=== PATIENT | female | born 1950 | race Caucasian/White ===

== ENCOUNTER → 2019-12-09 11:17 | Outpatient (CLI) | payer MEDICARE, SELFPAY ==
[2019-12-09 14:19] LABS: Chloride 102 mmol/L (98-107); Potassium 4.4 mmoL/L (3.5-5.1); Sodium 137 mmol/L (136-145)
[2019-12-09 14:22] LABS: Anion Gap 11.4 mEq/L (5-15); Blood Urea Nitrogen 29 mg/dl (7-17); Carbon Dioxide 28 mmol/L (22.0-30.0); Estimated Glomerular Filt Rate 35 ml/min (>60); GFR (African American) 42 ML/MIN (>60)
[2019-12-09 14:23] LABS: Calcium 9.1 mg/dl (8.4-10.2); Glucose 182 mg/dl (74-100)
== END ==
PROVIDERS: Visit Provider Physician Assistant
DX: N28.9 Disorder of kidney and ureter, unspecified (principal)
CPT/HCPCS: 36415; 80048

== ENCOUNTER → 2019-12-16 13:29 | Outpatient (CLI) | payer MEDICARE, SELFPAY ==
--- NOTE | 2019-12-16 13:34 | US_ITS ---
PROCEDURE: US KIDNEY CLINICAL INDICATION: RENAL INSUFFICIENCY COMPARISON: No exams were available for comparison FINDINGS: The right kidney is [id number]. No hydronephrosis, cortical thinning, or renal mass or perinephric fluid collection is evident. The left kidney is [id number]. No hydronephrosis, cortical thinning, or renal mass or perinephric fluid collection is evident. IMPRESSION: Unremarkable bilateral renal ultrasound Dictated by: Andrea Peterson MD 12/16/2019 17:23 Electronically signed by Andrea Peterson MD in [place] 12/16/2019 17:23
== END ==
PROVIDERS: PCP Physician Assistant; Visit Provider Family Medicine
DX: N28.9 Disorder of kidney and ureter, unspecified (principal)
CPT/HCPCS: 76770

== ENCOUNTER 2020-09-17 02:17 | Inpatient (IN) | payer MEDICARE, SELFPAY ==
[2020-09-17] VITALS (9 sets, daily range): BP systolic 119–200; BP diastolic 66–93; PULSE 72–96; RESP 17–20; TEMP 36.4–37.1; O2SAT 95–98; BMI 42.3; BMI 40.0
--- NOTE | 2020-09-17 02:41 | CT_ITS ---
PROCEDURE: CT ABDOMEN PELVIS W CON CLINICAL INDICATION: Abd Pain Abdominal pain and bloating, history of ovarian cancer COMPARISON: No exams were available for comparison TECHNIQUE: IV Contrast: 75ML Isovue 370 Oral Contrast None Axial images obtained with sagittal and coronal reformats. All CT scans at the facility use one or more dose reduction, viz: automated exposure control, ma/kV adjustment per patient size (including targeted exams where dose is matched to indication, i.e. head), or iterative reconstruction technique. FINDINGS: LOWER THORAX: Consolidation is present in the right lung base posteriorly consistent with an area of atelectasis or infiltrate. ABDOMEN & PELVIS: Fatty liver. No focal liver lesion. There is cholelithiasis. The gallbladder is slightly distended. Small calcific density is present in the distal common bile duct measuring approximately 4 mm suggesting a common duct stone. The common bile duct is slightly prominent at 9 mm. There is an additional small calcific density at the distal aspect of the common bile duct at the ampulla measuring 2 mm. The pancreas has an unremarkable appearance as does the spleen and adrenal glands. No renal or ureteral calculi. No hydronephrosis. No evidence of appendicitis. There has been a prior hysterectomy. There is colonic diverticulosis but no evidence of diverticulitis. There is a small focal area of thickening involving the transverse colon series 3, image 61. This may only be related to the area nondistention and may be confirmed with follow-up Degenerative changes are present in the spine. IMPRESSION: 1. Cholelithiasis with choledocholithiasis. Common bile duct is slightly prominent at 9 mm. The gallbladder is somewhat distended. 2. Atelectasis or infiltrate in the right lung base. 3. Small area of thickening of the transverse colon possibly due to nondistention. Nonemergent colonoscopy/barium enema may confirm to exclude an area of neoplastic involvement Dictated by: Andrea Peterson MD 09/17/2020 05:50 Andrea Peterson MD in [place] 09/17/2020 05:50
--- NOTE | 2020-09-17 02:41 | HMH.EDNVD ---
ED Disposition Clinical Impression: Renal insufficiency, Hypothyroidism (acquired) Cholelithiasis Qualifiers: Cholelithiasis location: gallbladder and bile duct Cholecystitis presence: without cholecystitis Biliary obstruction: with biliary obstruction Qualified Code(s): K80.71 - Calculus of gallbladder and bile duct without cholecystitis with obstruction Pancreatitis, acute Qualifiers: Pancreatitis type: biliary Acute pancreatitis complication: no infection or necrosis Qualified Code(s): K85.10 - Biliary acute pancreatitis without necrosis or infection Obesity Qualifiers: Obesity type: due to excess calories Obesity classification: adult class 3 (BMI >= 40) Serious obesity comorbidity presence: with serious comorbidity Body mass index: BMI 40.0-44.9 Qualified Code(s): E66.01 - Morbid (severe) obesity due to excess calories; Z68.41 - Body mass index [BMI]40.0-44.9, adult Disposition: Admitted As Inpatient Condition on Discharge: Good Instructions: DI for Acute Abdominal Pain Referrals: Linda Lamas PA [Primary Care Provider] - - Critical Care Critical Care Time: No Attestation: On 09/17/20, the high probability of a clinically significant, sudden or life threatening deterioration of the following system(s) required my full and direct attention, intervention and personal management. The time I documented below is in addition to time spent performing reported procedures but includes the following listed in this critical care notation. Medical Decision Making - Medical Records Medical records reviewed: Yes: I reviewed the patient's medical records. - [place] Inquiry Pt receiving controlled substance: No Vital Signs: 09/17/20 02:24 09/17/20 02:27 09/17/20 02:31 Temperature 97.5 F L Temperature Source Oral Pulse Rate 77 83 78 Pulse Rate [Right] 96 H Respiratory Rate 18 Blood Pressure 200/89 H 183/93 H 182/87 H Blood Pressure [Right Arm] 200/89 H Blood Pressure Mean 128 123 118 Blood Pressure Mean [Right Arm] 126 Blood Pressure Source [Right Arm] Automatic Cuff Blood Pressure Position [Right Arm] Supine 02 Sat by Pulse Oximetry 97 98 95 Oxygen Delivery Method Room Air 09/17/20 03:44 Temperature Temperature Source Pulse Rate 78 Pulse Rate [Right] Respiratory Rate Blood Pressure 137/66 Blood Pressure [Right Arm] Blood Pressure Mean 104 Blood Pressure Mean [Right Arm] Blood Pressure Source [Right Arm] Blood Pressure Position [Right Arm] 02 Sat by Pulse Oximetry 96 Oxygen Delivery Method - Lab Data Lab results reviewed: Yes: I reviewed the patient's lab results. Lab Results 09/17/20 02:32: Urine Color Dark yellow, Urine Appearance Clear, Urine pH 5.5, Ur Specific [place] >= 1.030, Urine Protein 2+, Urine Glucose (UA) Negative, Urine Ketones Negative, Urine Blood Trace-i, Urine Nitrate Negative, Urine Bilirubin Negative, Urine Urobilinogen 0.2, Ur Leukocyte Esterase Negative, Urine WBC 3-5, Ur Squamous Epith Cells Tntc, Calcium Oxalate Crystal 1+, Urine Bacteria 1+ 09/17/20 02:32: WBC 9.8, RBC 5.31, Hgb 14.4, Hct 45.1, MCV 84.9, MCH 27.1, MCHC 31.9, RDW 13.8, Plt Count 328, MPV 8.0, Neut % (Auto) 79.5, Lymph % (Auto) 14.5, [place] % (Auto) 4.0, Eos % (Auto) 1.3, Baso % (Auto) 0.6, Neut # (Auto) 7.8, Lymph # (Auto) 1.4, [place] # (Auto) 0.4, Eos # (Auto) 0.1, Baso # (Auto) 0.1, ESR 59 H 09/17/20 02:32: Sodium 131 L, Potassium 4.0, Chloride 97 L, Carbon Dioxide 24, Anion Gap 14.0, BUN 21 H, Creatinine 1.40 H, Estimated Creat Clear 35, Estimated GFR 37 L, Est GFR ( Amer) 45 L, Glucose 136 H, Calcium 10.8 H, Total Bilirubin 2.5 H, AST 299 H, ALT 349 H*, Alkaline Phosphatase 170 H, C-Reactive Protein 8.7 H, Total Protein 8.4 H, Albumin 4.7, Globulin 3.7 H, Albumin/Globulin Ratio 1.3, Amylase 1129 H*, Lipase 16706 H, Procalcitonin 0.223 Result diagrams: 09/17/20 02:32 09/17/20 02:32 Orders (Tests/Meds): ED MEDICATIONS Generic Name Dose Route Start Last Admin Trade Name Fr
[2020-09-17 02:59] LABS: Microscopic, Urine URINE MICROSCOPIC (MICROSCOPIC)
[2020-09-17 03:04] LABS: Appearance,Urine CLEAR (Clear); Blood, Urine TRACE-I (Negative); Glucose,Urine (UA) Negative (Negative); Ketones,Urine Negative (Negative); Leukocyte Esterase,Urine Negative (Negative); Nitrate,Urine Negative (Negative); PH,Urine 5.5 (5.0-8.5); Protein,Urine 2+ (Negative); Specific Gravity, Urine >= 1.030 (1.005-1.030); Urobilinogen,Urine 0.2 EU/dl (0.2)
[2020-09-17 03:05] LABS: Alanine Aminotransferase 349 U/L (12-78); Albumin Level 4.7 g/dl (3.5-5.0); Albumin/Globulin Ratio 1.3 (1.1-1.8); Alkaline Phosphatase 170 U/L (38-126); Amylase 1129 U/L (30-110); Aspartate Amino Transferase 299 U/L (14-36); Bilirubin,Total 2.5 mg/dl (0.2-1.3); Blood Urea Nitrogen 21 mg/dl (7-17); Calcium 10.8 mg/dl (8.4-10.2); Carbon Dioxide 24 mmol/L (22.0-30.0); Chloride 97 mmol/L (98-107); Creatinine Clearance Estimated 35 mL/min (50-200); Estimated Glomerular Filt Rate 37 ml/min (>60); GFR (African American) 45 ML/MIN (>60); Globulin 3.7 g/dL (1.3-3.2); Glucose 136 mg/dl (74-100); Sodium 131 mmol/L (136-145); Total Protein,Serum 8.4 g/dl (6.3-8.2)
[2020-09-17 03:08] LABS: Bilirubin,Urine Negative (Negative); Color,Urine Dark Yellow (Yellow)
[2020-09-17 03:10] LABS: Basophils # 0.1 K/mm3 (0-0.2); Basophils % 0.6 % (0.1-2.0); Eosinophils # 0.1 K/mm3 (0.0-0.4); Eosinophils % 1.3 % (0.1-12.0); Hematocrit 45.1 % (37.0-47.0); Hemoglobin 14.4 g/dL (12.2-16.2); Lymphocytes # 1.4 K/mm3 (0.7-4.5); Lymphocytes % 14.5 % (10-50); Mean Corpuscular HGB Conc 31.9 g/dL (31.8-35.4); Mean Corpuscular Hemoglobin 27.1 pg (27.0-31.2); Mean Corpuscular Volume 84.9 fl (81-99); Monocytes # 0.4 K/mm3 (0.1-1.0); Neutrophils # 7.8 K/mm3 (1.8-7.8); Neutrophils % 79.5 % (37.0-80.0); Platelet Count 328 K/mm3 (142-424); Red Blood Count 5.31 M/mm3 (4.20-5.40); Red Cell Distribution Width 13.8 % (11.5-17.5); White Blood Count 9.8 K/mm3 (4.8-10.8)
[2020-09-17 03:11] LABS: C-Reactive Protein 8.7 mg/L (0-4)
[2020-09-17 04:24] LABS: Adenovirus,PCR Not Detected (NotDetected); Bordetella Pertussis Not Detected (NotDetected); Chlamydophila Pneumoniae, PCR Not Detected (NotDetected); Coronavirus 19, PCR Not Detected (NotDetected); Coronavirus 229E Not Detected (NotDetected); Coronavirus NL63 Not Detected (NotDetected); Coronavirus OC43 Not Detected (NotDetected); Coronovirus HKU1,PCR Not Detected (NotDetected); Human Metapneumovirus Not Detected (NotDetected); Influenza A, PCR Not Detected (NotDetected); Influenza AH1, 2009 Not Detected (NotDetected); Influenza AH1, PCR Not Detected (NotDetected); Influenza AH3,PCR Not Detected (NotDetected); Influenza B, PCR Not Detected (NotDetected); Mycoplasma Pneumoniae, PCR Not Detected (NotDetected); Parainfluenza 1, PCR Not Detected (NotDetected); Parainfluenza 2, PCR Not Detected (NotDetected); Parainfluenza 3, PCR Not Detected (NotDetected); Parainfluenza 4, PCR Not Detected (NotDetected); Respiratory Syncytial Virus Not Detected (NotDetected); Rhinovirus/Enterovirus Not Detected (NotDetected)
[2020-09-17 04:36] LABS: Bacteria,Urine 1+ /lpf; Calcium Oxalate Crystals,Urine 1+ /lpf; Squamous Epithelial Cell,Urine TNTC #/hpf (0-5)
[2020-09-17 04:53] LABS: Lipase 13598 U/L (23-300)
[2020-09-17 05:01] LABS: Erythrocyte Sedimentation Rate 59 mm/hr (0-30)
[2020-09-17 05:19] LABS: Procalcitonin 0.223 ng/mL (0.0-2.0)
--- NOTE | 2020-09-17 05:24 | PC.NURSE ---
Dr Tolbert speaking with Dr Murphy for ERCP
--- NOTE | 2020-09-17 05:25 | PC.NURSE ---
Dr Tolbert speaking with Dr Suazo for surgery
--- NOTE | 2020-09-17 05:44 | PC.NURSE ---
Dr Tolbert spoke with Dr Olivo for admit
--- NOTE | 2020-09-17 06:06 | PC.NURSE ---
patient up to floor via wheelchair.
--- NOTE | 2020-09-17 06:57 | PC.NURSE ---
PT A&OX4. TOLERATING RA WELL. HAS NOT C/O PAIN SINCE ARRIVAL TO FLOOR. UP INDEPENDENTLY IN ROOM. TOLERATING NPO DIET. VSS WILL CONTINUE TO MONITOR.
--- NOTE | 2020-09-17 07:21 | HMH.PHAVTE ---
[facility] Pharmacy VTE Monitoring - Patient Demographics Admission date: 09/17/20 Report Date: 09/17/20 Time: 07:22 Allergies/Adverse Reactions: Patient Allergies No Known Allergies Allergy (Unverified 05/30/17 14:35) Height: 1.66 m Weight: 110.79 kg Patient Problems: Current Active Problems Cholelithiasis (Acute) Pancreatitis, acute (Acute) Renal insufficiency (Acute) Hypothyroidism (acquired) (Acute) Obesity (Acute) - VTE Risk Labs: VTE Related Lab Results Hgb 14.4 g/dL (12.2-16.2) 09/17/20 02:32 Hct 45.1 % (37.0-47.0) 09/17/20 02:32 Plt Count 328 K/mm3 (142-424) 09/17/20 02:32 BUN 21 mg/dl (7-17) H 09/17/20 02:32 Creatinine 1.40 mg/dl (0.52-1.04) H 09/17/20 02:32 Estimated Creat Clear 35 mL/min (50-200) 09/17/20 02:32 - Prophylaxis VTE Prophylaxis Ordered?: Yes Types of VTE Prophylaxis: TEDS Knee High Location of Applied Device: Bilateral Lower Extremeties
--- NOTE | 2020-09-17 07:22 | PC.NURSE ---
Dr. Cardenas notified of consult.
--- NOTE | 2020-09-17 07:22 | PC.NURSE ---
Surgery notified of Madhuri consult, vipul put it on the board.
--- NOTE | 2020-09-17 07:57 | HMH.GSCON ---
*Admission Date: 09/17/20 *Reason for consult:: Gallstones, pancreatitis *History of present illness: Patient is a 70-year-old female. She states that/11/30 she had developed some upper abdominal pains which she thought was gas pain. She did have some associated bloating. This had transiently improved however last night it recurred. This was across the upper abdomen with radiation into her back. She presented to the emergency department. She was seen and evaluated and underwent work-up. This revealed elevation of liver function tests with a bilirubin of 2.5. She had elevation of pancreatic enzymes. CT scan imaging revealed findings of gallstones with dilated common bile duct with probable common bile duct stone. Surgery was contacted. It is felt that the patient may require transfer for more emergent ERCP for choledocholithiasis and biliary pancreatitis. Discussion was held with gastroenterology who felt that she could be admitted for urgent ERCP when available. She was admitted and gastroenterology and surgical consultations were obtained. Review of Systems - Review of Systems Review of systems:: pertinent systems reviewed and negative unless documented below - *Neurologic Denies localized weakness, Denies headache(s), Denies seizure-like activity [facility] History I have reviewed the patient's past medical history: Yes Medical History: Reports:: Cancer, Hypertension Denies:: Diabetes Mellitus Type 1, Diabetes Mellitus Type 2 *Have you ever received a pneumonia vaccine?: Yes *Have you received a flu vaccine this season?: No Other Medical History: Reports: Thyroid Disease Other Surgeries: Yes: Hysterectomy-Total - *Social History Smoking Status: Former smoker Alcohol Intake: never *Occupational Status:: retired *Travel in the last 8 weeks: None Family Hx:: Non-contributory Meds Home Medications Medication Instructions Recorded Confirmed Type Amlodipine Besylate [Norvasc 5mg 5 mg PO DAILY 09/17/20 History tablet] Aspirin [Aspirin 81mg EC Tab] 81 mg PO DAILY 09/17/20 History Calcium Carbonate [Calcium] 600 mg PO BID 09/17/20 History Cholecalciferol (Vitamin D3) 5,000 unit PO DAILY 09/17/20 History [Vitamin D3 1,000 Unit Cap] Docusate Sodium [Colace] 100 mg PO DAILY 09/17/20 History Levothyroxine Sodium 25 mcg PO DAILY 09/17/20 09/17/20 History [Levothyroxine 25mcg (0.025mg) Tab] Meloxicam [Mobic 15 mg tab] 15 mg PO DAILY 09/17/20 History Metoprolol Succinate [Metoprolol 50 mg PO DAILY 09/17/20 History Succinate 50mg Tablet*] Pravastatin Sodium [Pravachol] 20 mg PO HS 09/17/20 History calcium polycarbophiL [Fiber Tabs] 1,250 mg PO DAILY 09/17/20 History Allergies Allergy/AdvReac Type Severity Reaction Status Date / Time No Known Allergies Allergy Unverified 05/30/17 14:35 Exam Vital signs and Labs for Last 24 Hours: Temp Pulse Resp BP Pulse Ox 97.6 F 72 17 155/86 H 98 09/17/20 06:23 09/17/20 06:23 09/17/20 06:23 09/17/20 06:23 09/17/20 06:23 Laboratory Results - last 24 hr 09/17/20 02:32: Urine Color Dark yellow, Urine Appearance Clear, Urine pH 5.5, Ur Specific [place] >= 1.030, Urine Protein 2+, Urine Glucose (UA) Negative, Urine Ketones Negative, Urine Blood Trace-i, Urine Nitrate Negative, Urine Bilirubin Negative, Urine Urobilinogen 0.2, Ur Leukocyte Esterase Negative, Urine WBC 3-5, Ur Squamous Epith Cells Tntc, Calcium Oxalate Crystal 1+, Urine Bacteria 1+ 09/17/20 02:32: WBC 9.8, RBC 5.31, Hgb 14.4, Hct 45.1, MCV 84.9, MCH 27.1, MCHC 31.9, RDW 13.8, Plt Count 328, MPV 8.0, Neut % (Auto) 79.5, Lymph % (Auto) 14.5, [place] % (Auto) 4.0, Eos % (Auto) 1.3, Baso % (Auto) 0.6, Neut # (Auto) 7.8, Lymph # (Auto) 1.4, [place] # (Auto) 0.4, Eos # (Auto) 0.1, Baso # (Auto) 0.1, ESR 59 H 09/17/20 02:32: Sodium 131 L, Potassium 4.0, Chloride 97 L, Carbon Dioxide 24, Anion Gap 14.0, BUN 21 H, Creatinine 1.40 H, Estimated Creat Clear 35, Estimated GFR 37 L, Est GFR ( Amer)
[2020-09-17 08:29] LABS: Lactate Dehydrogenase 438 U/L (313-618)
--- NOTE | 2020-09-17 08:30 | US_ITS ---
PROCEDURE: US GALLBLADDER CLINICAL INDICATION: abd pain Abdominal pain with choledocholithiasis suspected COMPARISON: No exams were available for comparison FINDINGS: Study is technically difficult due to patient's body habitus. Pancreas: Unremarkable appearing pancreas. Liver: Diffuse increased echogenicity of the liver with poor through transmission of sound consistent with hepatic steatosis. No focal liver lesion demonstrated. There is appropriate direction of blood flow within non dilated portal vein. Right kidney: Cortical thinning. No hydronephrosis. Gallbladder: Gallbladder slightly distended. There are small stones noted. No obvious gallbladder wall thickening, pericholecystic fluid, or biliary dilatation. IMPRESSION: Limited exam secondary to patient's body habitus.. Small gallstones are noted. Fatty liver Dictated by: Andrea Peterson MD 09/17/2020 11:00 Andrea Peterson MD in [place] 09/17/2020 11:00
--- NOTE | 2020-09-17 09:53 | HMH.PHAINT ---
MEDICATION RECONCILIATION COMPLETED USING EXTERNAL FILL HISTORY AND PHYSICIAN OFFICE LIST
--- NOTE | 2020-09-17 12:34 | HMH.HP ---
*Admission Date: 09/17/20 <NarayanRobert hainesa 09/17/20 12:41> *Chief complaint: abdominal pain <Linda Lamas 09/17/20 12:41> *History of present illness: Patient is a 70-year-old female. She states that on 09/15/20 she had developed some upper abdominal pains which she thought was gas pain. She did have some associated bloating. This had transiently improved however last night it recurred. This was across the upper abdomen with radiation into her back. She presented to the emergency department. She was seen and evaluated and underwent work-up. This revealed elevation of liver function tests with a bilirubin of 2.5. She had elevation of pancreatic enzymes. CT scan imaging revealed findings of gallstones with dilated common bile duct with probable common bile duct stone. Surgery was contacted. It is felt that the patient may require transfer for more emergent ERCP for choledocholithiasis and biliary pancreatitis. Discussion was held with gastroenterology who felt that she could be admitted for urgent ERCP when available. She was admitted and gastroenterology and surgical consultations were obtained. (above as per Dr. Cardenas) <Linda Lamas 09/17/20 12:41> [facility] History I have reviewed the patient's past medical history: Yes <Linda Lamas 09/17/20 12:41> Medical History: Reports:: Cancer, Hyperlipidemia, Hypertension Denies:: Diabetes Mellitus Type 1, Diabetes Mellitus Type 2 <Linda Lamas 09/17/20 12:41> *Have you ever received a pneumonia vaccine?: Yes <Linda Lamas 09/17/20 12:41> *Have you received a flu vaccine this season?: No <Linda Lamas 09/17/20 12:41> Other Medical History: Reports: Hypothyroidism, Thyroid Disease <Linda Lamas 09/17/20 12:41> Laterality Cases: Left: Total Knee Replacement <Linda Lamas 09/17/20 12:41> Other Surgeries: Yes: Hysterectomy-Total <Linda Laams 09/17/20 12:41> - *Social History Smoking Status: Former smoker <Linda Lamas 09/17/20 12:41> Alcohol Intake: never <Linda Lamas 09/17/20 12:41> *Occupational Status:: retired <Linda Lamas 09/17/20 12:41> *Travel in the last 8 weeks: None <Linda Lamas 09/17/20 12:41> Family Hx:: Coronary Artery Disease, Heart Attack, Hypertension <Linda Lamas 09/17/20 12:41> Review of Systems - Constitutional Denies chills, Denies fever(s), Denies weakness <Linda Lamas 09/17/20 12:41> - Eyes Denies blurry vision, Denies double vision <Linda Lamas 09/17/20 12:41> - ENT Denies nasal congestion, Denies sore throat <Linda Lamas 09/17/20 12:41> - *Cardiovascular Reports shortness of breath, Denies chest pain, Denies leg swelling <Linda Lamas 09/17/20 12:41> - *Respiratory Denies cough <Linda Lamas 09/17/20 12:41> - *Gastrointestinal Reports abdominal pain (upper abdomen), Reports constipation, Reports nausea, Reports vomiting, Denies loose stools <Linda Lamas 09/17/20 12:41> - *Genitourinary Denies difficulty urinating, Denies painful urination <Linda Lamas 09/17/20 12:41> - *Musculoskeletal Reports back pain, Denies joint pain <Linda Lamas 09/17/20 12:41> - *Neurologic Denies localized weakness, Denies headache(s), Denies seizure-like activity, Denies dizziness, Denies weakness <Linda Lamas 09/17/20 12:41> Meds Home Medications Medication Instructions Recorded Confirmed Type Amlodipine Besylate [Norvasc 5mg 5 mg PO DAILY 09/17/20 09/17/20 History tablet] Aspirin [Aspirin 81mg EC Tab] 81 mg PO DAILY 09/17/20 09/17/20 History Calcium Carbonate [Calcium] 600 mg PO BID 09/17/20 09/17/20 History Cholecalciferol (Vitamin D3) 2,000 unit PO DAILY 09/17/20 09/17/20 History [Vitamin D3 1,000 Unit Cap] Docusate Sodium [Colace] 100 mg PO DAILY 09/17/20 09/17/20 History Levothyroxine Sodium 25 mcg PO DAILY 09/17/20 09/17/20 History [Levothyroxine 25mcg (0.025mg) Tab] Meloxicam [Mobic 15 mg tab] 15 mg PO DAILY 09/17/20 09/17/20 Hist
--- NOTE | 2020-09-17 16:40 | PC.NURSE ---
Report given to Hany Wolfe RN.
--- NOTE | 2020-09-17 16:44 | PC.NURSE ---
Report received from JAYLYN Posey.
--- NOTE | 2020-09-17 17:04 | PC.NURSE ---
Pt taking a shower at this time.
--- NOTE | 2020-09-17 19:26 | PC.NURSE ---
Report to JAYLYN [place].
[2020-09-18] VITALS (19 sets, daily range): BP systolic 117–170; BP diastolic 53–91; PULSE 73–89; RESP 16–18; TEMP 36.1–36.8; O2SAT 93–100; BMI 40.3
--- NOTE | 2020-09-18 04:21 | PC.NURSE ---
pt has slept in intervals this shift. A&O x4, BLT lungs CTA, Bowel sounds present in all 4 quadrants, Pt on RA, IV changed this shift r/t IV leaking. pt has been medicated for pain and nausea per MAR, Pt denies SOA, headache, or vomiting, abdomen soft, non-tender, and slightly puffy
--- NOTE | 2020-09-18 06:45 | PC.NURSE ---
Lab at the bedside
[2020-09-18 07:01] LABS: Basophils % 0.3 % (0.1-2.0); Eosinophils # 0.1 K/mm3 (0.0-0.4); Eosinophils % 1.4 % (0.1-12.0); Hematocrit 42.5 % (37.0-47.0); Hemoglobin 13.7 g/dL (12.2-16.2); Lymphocytes # 1.4 K/mm3 (0.7-4.5); Lymphocytes % 13.7 % (10-50); Mean Corpuscular HGB Conc 32.1 g/dL (31.8-35.4); Mean Corpuscular Hemoglobin 27.7 pg (27.0-31.2); Mean Corpuscular Volume 86.2 fl (81-99); Mean Platelet Volume 7.9 fl (7.4-10.4); Monocytes # 0.4 K/mm3 (0.1-1.0); Monocytes % 3.5 % (1.7-9.3); Neutrophils # 8.4 K/mm3 (1.8-7.8); Neutrophils % 81.1 % (37.0-80.0); Platelet Count 290 K/mm3 (142-424); Red Blood Count 4.93 M/mm3 (4.20-5.40); Red Cell Distribution Width 14.2 % (11.5-17.5); White Blood Count 10.3 K/mm3 (4.8-10.8)
--- NOTE | 2020-09-18 07:13 | PC.NURSE ---
Report to Lynnette Sauceda Rn and Hany Rabago RN
--- NOTE | 2020-09-18 07:19 | HMH.GSPN ---
Subjective Narrative: Patient still has had some pain. Requiring morphine. Progress Note: A&P (1) Pancreatitis, acute Status: Acute (2) Cholelithiasis Status: Acute (3) Renal insufficiency Status: Acute (4) Hypothyroidism (acquired) Status: Chronic (5) Hypertension Status: Chronic (6) Hyperlipemia Status: Chronic (7) Elevated LFTs Status: Acute Assessment and Plan for All Diagnoses:: ERCP today. Once pancreatitis resolves may be able to be discharged with outpatient cholecystectomy Exam Vital signs and Labs for Last 24 Hours: Temp Pulse Resp BP Pulse Ox 97.7 F 74 18 142/74 H 93 L 09/18/20 04:00 09/18/20 04:00 09/18/20 04:00 09/18/20 04:00 09/18/20 04:00 Laboratory Results - last 24 hr 09/17/20 02:32: Lactate Dehydrogenase 438 I & O for Last 24 hours: Intake & Output 09/15/20 09/16/20 09/17/20 09/18/20 11:59 11:59 11:59 11:59 Intake Total 2300 / 2300 480 / 480 Output Total 0 / 0 Balance 2300 / 2300 480 / 480 Weight 244 lb 4 oz - *Routine Abdominal Exam Present: soft
[2020-09-18 07:38] LABS: Chloride 103 mmol/L (98-107)
[2020-09-18 07:39] LABS: Potassium 4.7 mmoL/L (3.5-5.1); Sodium 135 mmol/L (136-145)
[2020-09-18 07:41] LABS: Amylase 202 U/L (30-110)
[2020-09-18 07:42] LABS: Alanine Aminotransferase 256 U/L (12-78); Albumin Level 4.2 g/dl (3.5-5.0); Albumin/Globulin Ratio 1.4 (1.1-1.8); Alkaline Phosphatase 141 U/L (38-126); Anion Gap 12.7 mEq/L (5-15); Aspartate Amino Transferase 133 U/L (14-36); Bilirubin,Total 0.8 mg/dl (0.2-1.3); Blood Urea Nitrogen 15 mg/dl (7-17); Carbon Dioxide 24 mmol/L (22.0-30.0); Creatinine Clearance Estimated 78 mL/min (50-200); Estimated Glomerular Filt Rate 45 ml/min (>60); GFR (African American) 54 ML/MIN (>60); Globulin 3.1 g/dL (1.3-3.2); Glucose 92 mg/dl (74-100); Lipase 409 U/L (23-300); Total Protein,Serum 7.3 g/dl (6.3-8.2)
[2020-09-18 07:43] LABS: Calcium 9.3 mg/dl (8.4-10.2)
--- NOTE | 2020-09-18 08:00 | PC.NURSE ---
Padma Lamas PA in room at this time.
--- NOTE | 2020-09-18 08:23 | PC.NURSE ---
Dr. Roblero in room.
--- NOTE | 2020-09-18 08:30 | HMH.ACPN2 ---
<Linda Lamas - Last Filed: 09/18/20 08:30> Internal Medicine - PN: Subj *Date: 09/18/20 *Time: 08:30 Interval history: Patient states she is feeling better this morning. Her pain is improved. She still has some upper abdominal bloating. She states she did take morphine last night and slept well. She was able to drink some liquids yesterday but did have some episodes of vomiting. Exam Vital signs and Labs for Last 24 Hours: Temp Pulse Resp BP Pulse Ox 97.7 F 74 18 142/74 H 93 L 09/18/20 04:00 09/18/20 04:00 09/18/20 04:00 09/18/20 04:00 09/18/20 04:00 Laboratory Results - last 24 hr 09/17/20 02:32: Lactate Dehydrogenase 438 09/18/20 06:47: WBC 10.3, RBC 4.93, Hgb 13.7, Hct 42.5, MCV 86.2, MCH 27.7, MCHC 32.1, RDW 14.2, Plt Count 290, MPV 7.9, Neut % (Auto) 81.1 H, Lymph % (Auto) 13.7, [place] % (Auto) 3.5, Eos % (Auto) 1.4, Baso % (Auto) 0.3, Neut # (Auto) 8.4 H, Lymph # (Auto) 1.4, [place] # (Auto) 0.4, Eos # (Auto) 0.1, Baso # (Auto) 0.0 09/18/20 06:47: Sodium 135 L, Potassium 4.7, Chloride 103, Carbon Dioxide 24, Anion Gap 12.7, BUN 15 D, Creatinine 1.20 H, Estimated Creat Clear 78, Estimated GFR 45 L, Est GFR ( Amer) 54 L, Glucose 92, Calcium 9.3 D, Total Bilirubin 0.8, AST 133 H D, ALT 256 H D, Alkaline Phosphatase 141 H, Total Protein 7.3, Albumin 4.2 D, Globulin 3.1, Albumin/Globulin Ratio 1.4, Amylase 202 H, Lipase 409 H I & O for Last 24 hours: Intake & Output 09/15/20 09/16/20 09/17/20 09/18/20 11:59 11:59 11:59 11:59 Intake Total 2300 / 2300 480 / 480 Output Total 0 / 0 Balance 2300 / 2300 480 / 480 Weight 244 lb 4 oz - Constitutional no acute distress - *Routine Respiratory Exam Present: CTA bilaterally - *Routine Cardiovascular Exam Present: RRR - *Routine Abdominal Exam Present: soft, normoactive bowel sounds, tenderness (Epigastric), distended (Epigastric area) - *Routine Extremities Exam Absent: cyanosis, clubbing, edema - *Routine Skin Exam Present: warm. Absent: rash - *Routine Neurological Exam Present: alert, oriented X3 Assessment and Plan (1) Pancreatitis, acute Status: Acute Qualifiers: Pancreatitis type: biliary Acute pancreatitis complication: no infection or necrosis Qualified Code(s): K85.10 - Biliary acute pancreatitis without necrosis or infection Category: Medical Code(s): K85.90 - Acute pancreatitis without necrosis or infection, unspecified (2) Cholelithiasis Status: Acute Qualifiers: Cholelithiasis location: gallbladder and bile duct Cholecystitis presence: without cholecystitis Biliary obstruction: with biliary obstruction Qualified Code(s): K80.71 - Calculus of gallbladder and bile duct without cholecystitis with obstruction Category: Medical Code(s): K80.20 - Calculus of gallbladder without cholecystitis without obstruction (3) Renal insufficiency Status: Acute Category: Medical Code(s): N28.9 - Disorder of kidney and ureter, unspecified (4) Hypothyroidism (acquired) Status: Chronic Category: Medical Code(s): E03.9 - Hypothyroidism, unspecified (5) Hypertension Status: Chronic Category: Medical Code(s): I10 - Essential (primary) hypertension (6) Hyperlipemia Status: Chronic Category: Medical Code(s): E78.5 - Hyperlipidemia, unspecified (7) Elevated LFTs Status: Acute Category: Medical Code(s): R79.89 - Other specified abnormal findings of blood chemistry - Assessment and plan all Dx Assessment and Plan for all problems:: Bilirubin has normalized and pancreatic enzymes have decreased significantly. The liver tests have improved as well. Patient is scheduled for an ERCP with Dr. Dhaliwal this morning. <Hesham Roblero - Last Filed: 09/18/20 09:39> Internal Medicine - PN: Subj *Date: 09/18/20 *Time: 09:38 Exam Vital signs and Labs for Last 24 Hours: Temp Pulse Resp BP Pulse Ox 98.0 F 89 16 151/77 H 97 09/18/20 08:0
--- NOTE | 2020-09-18 08:54 | HMH.PHAINT ---
verified home medication list using list from [facility]
--- NOTE | 2020-09-18 13:35 | PC.NURSE ---
Pt. to pre-op via stretcher, report given to JAYLYN Sheridan.
--- NOTE | 2020-09-18 14:02 | FL_ITS ---
PROCEDURE: FL ERCP CLINICAL INDICATION: pancreatitis Choledocholithiasis COMPARISON: CT CT ABDOMEN PELVIS W CON from 09/17/2020 FINDINGS: Fluoroscopy time: 1 minutes and 30 seconds. 3 images submitted from the procedure demonstrating a small rounded filling defect in the distal aspect the common bile duct consistent with a common duct stone. This is approximately 4 mm. There may be an additional small stone in the upper aspect of the common bile duct at 3 mm. This however is less certain. Common bile duct is slightly prominent less than the with of the endoscope. Please see op report regarding the procedure. IMPRESSION: Choledocholithiasis Dictated by: Andrea Peterson MD 09/18/2020 15:17 Andrea Peterson MD in [place] 09/18/2020 15:17
--- NOTE | 2020-09-18 14:17 | HMH.PROC ---
[facility] Procedure Note Procedure Note:: ERCP procedure Report: Endoscopic retrograde cholangiopancreatography with sphincterotomy, balloon extraction and cold biopsies Endoscopist: Adama Dhaliwal II, MD Referring Physician: ROSIBEL Evans/Cordell Cardenas MD/Garcia Roblero MD Date of Procedure: September 18, 2020 Equipment: Olympus 180 side viewing endoscope duodenoscope Sedation: MAC sedation Indication: Mrs. Jack is a 70-year-old female who has had upper abdominal pain which she thought was gas pain and bloating. On Monday of this week, the pain did radiate into the back on the right side with right subscapular pain. This became more excruciating and she came to the emergency department. Her lab work showed pancreatitis with an amylase of 1129 and lipase 13,598. She also had elevated liver chemistries with a total bilirubin of 2.5 and alkaline phosphatase 170. Her ALT level was 349. She also had an elevated C-reactive protein of 8.7. Her CT scan of the abdomen and pelvis did show small calcific densities present in the distal common bile duct measuring 4 mm with a dilated common bile duct of 9 mm. There was evidence of cholelithiasis and choledocholithiasis with a distended gallbladder. The pancreas had a fairly unremarkable appearance. The patient's daughter has celiac disease. Procedure: Prior to the procedure, a history and physical exam was performed, and patient's medications and allergies were reviewed. The risks, benefits and alternatives of the sedation and procedure were discussed with the patient. All questions were answered and informed consent was obtained. The patient was brought to the fluoroscopic radiology room. Patient identification and proposed procedure were verified by the physician and the nurse. The patient was placed in a swimmer's position between left lateral decubitus and prone position and the scope was passed under direct vision. Throughout the procedure, the patient's blood pressure, pulse, and oxygen saturations were monitored continuously. The ERCP was accomplished without difficulty. The patient tolerated the procedure well. Findings: The side-viewing duodenoscope was passed directly into the upper esophagus and advanced to the second and third portion of the duodenum. The esophagus was normal. There was mild reactive gastropathy of the stomach. The duodenum was normal and the conniventes showed no evidence of scalloping. Cold biopsies were taken from the first and second portion of the duodenum to rule out celiac disease. The ampulla was well visualized. Both the pancreatic duct and the common bile duct were freely cannulated with the guidewire. The guidewire did reach the head, body and tail of the gland but contrast was not injected into the pancreas. The cholangiogram did show a 10 to 11 mm common bile duct with normal filling of the intrahepatic biliary system. There was frothy filling defect noted in the distal CBD suggestive of stones or sludge. A biliary sphincterotomy was performed and there was extravasation of sludge and bile. A 9 to 10 mm sweeping balloon was placed at the hilum and swept through the biliary system twice with the passage of some sludge but no solid stone. There was nonfilling of the cystic duct and gallbladder suggestive of cholecystitis. Impression: 1. Biliary sludge/stony debris (minor choledocholithiasis) status post biliary sphincterotomy and balloon extraction 2. Nonfilling cystic duct/gallbladder suggestive of cholecystitis Plan: The patient did have gallstone pancreatitis. She can now undergo cholecystectomy now or elective outpatient. Given the cholangiographic and imaging evidence of early cholecystitis, I would consider earlier cholecystectomy. I will follow-up the biopsies.
--- NOTE | 2020-09-18 15:02 | P.PN_ITS ---
[facility] Anesthesia Checklist - Structural Data Admitted From: Inpatient Planned Operative Procedure/s: ercp Consent for Planned Operative Procedure(s) Verified: Yes - Airway Assessment C-Spine Mobility Assessed: Yes TMJ Mobility Assessed: Yes Dentition: Good Dentition - Neurological Assessment Level of Consciousness: Awake, Alert, Appropriate - Anesthesia Plan Anesthesia Risk discussed: Yes Anesthesia Plan: Verified ASA Class: III Anesthesia Type: MAC [facility] History I have reviewed the patient's past medical history: Yes Medical History: Reports:: Cancer, Hyperlipidemia, Hypertension Denies:: Diabetes Mellitus Type 1, Diabetes Mellitus Type 2 *Have you ever received a pneumonia vaccine?: Yes *Have you received a flu vaccine this season?: No Other Medical History: Reports: Hypothyroidism, Thyroid Disease Anesthesia experience/problems:: none Laterality Cases: Left: Total Knee Replacement Other Surgeries: Yes: Hysterectomy-Total - *Social History Smoking Status: Former smoker Alcohol Intake: never Substance Use Type: denies use *Occupational Status:: retired *Travel in the last 8 weeks: None Family Hx:: Coronary Artery Disease, Heart Attack, Hypertension
--- NOTE | 2020-09-18 15:20 | PC.NURSE ---
Report received from Candice Mcmillan RN.
--- NOTE | 2020-09-18 15:30 | PC.NURSE ---
Pt. arrived to room 279 via stretcher. accompanied by surgery staff x2.
--- NOTE | 2020-09-18 15:35 | SUR.PHASEII ---
153- report called to Lynnette Sauceda Rn- Given inst per Dr Dhaliwal for pt to only have ice chips and water today, can advance to lowfat diet in the morning 09/19/20
--- NOTE | 2020-09-18 16:20 | PC.NURSE ---
Report received from Candice Mcmillan RN.
--- NOTE | 2020-09-18 16:25 | PC.NURSE ---
Routine reassessment completed. Pt. reports feeling groggy from anesthesia and bloating in upper abd. Pt. denies pain or nausea. No further acute changes from previous assessment. Pt. resting in bed, denies needs, will continue to monitor.
--- NOTE | 2020-09-18 17:00 | PC.NURSE ---
Dr. Roblero in room at this time.
--- NOTE | 2020-09-18 19:00 | PC.NURSE ---
report received from lawson joe rn
--- NOTE | 2020-09-18 21:00 | PC.NURSE ---
BP TAKEN AT 2029 WAS 164/77. PT HAD JUST AMBULATED TO THE BATHROOM. FOLLOW UP BP TAKEN AT 2099 WAS 141/73 AT REST.
[2020-09-19] VITALS: BP 152/78; PULSE 83; RESP 17; TEMP 36.5; O2SAT 97
[2020-09-19 04:00] VITALS: BP 156/75; PULSE 95; RESP 17; TEMP 36.4; O2SAT 95
--- NOTE | 2020-09-19 04:00 | PC.NURSE ---
PATIENT HAS DONE WELL THIS SHIFT. PT HAS DENIED PAIN OR NEED FOR MEDICATION. PATIENT REMAINS A&O X4, AMBULATES WELL INDEPENDENTLY AND HAS RESTED WELL. LUNGS REMAIN CTAB AND BOWELS REMAIN HYPOACTIVE IN AL QUADRANTS. SHE IS NPO AT MIDNIGHT DUE TO UNCERTAINTY OF POSSIBLE PROCEDURE TODAY. SHE HAS RECEIVED ORDERED ANTIBIOTICS. DR. TURNER WAS NOTIFIED LAST NIGHT OF BLOOD PRESSURES TRENDING HIGHER AND A SINGLE DOSE OF AMLODIPINE WAS ORDERED AND GIVEN. HER VS HAVE BEEN STABLE AND SHE REMAINS AFEBRILE. PT HAS CALL LIGHT AND BELONGINGS IN REACH.
[2020-09-19 04:31] VITALS: BMI 43.2
[2020-09-19 05:45] LABS: Basophils % 0.3 % (0.1-2.0); Eosinophils # 0.2 K/mm3 (0.0-0.4); Eosinophils % 2.1 % (0.1-12.0); Hematocrit 41.7 % (37.0-47.0); Hemoglobin 13.3 g/dL (12.2-16.2); Lymphocytes # 0.8 K/mm3 (0.7-4.5); Mean Corpuscular HGB Conc 31.8 g/dL (31.8-35.4); Mean Corpuscular Hemoglobin 27.4 pg (27.0-31.2); Mean Corpuscular Volume 86.1 fl (81-99); Mean Platelet Volume 7.9 fl (7.4-10.4); Monocytes # 0.4 K/mm3 (0.1-1.0); Monocytes % 4.4 % (1.7-9.3); Neutrophils # 6.9 K/mm3 (1.8-7.8); Neutrophils % 83.1 % (37.0-80.0); Platelet Count 219 K/mm3 (142-424); Red Blood Count 4.84 M/mm3 (4.20-5.40); Red Cell Distribution Width 14.3 % (11.5-17.5); White Blood Count 8.3 K/mm3 (4.8-10.8)
[2020-09-19 05:53] LABS: Chloride 105 mmol/L (98-107); Sodium 136 mmol/L (136-145)
[2020-09-19 05:54] LABS: Potassium 4.1 mmoL/L (3.5-5.1)
[2020-09-19 05:56] LABS: Alanine Aminotransferase 194 U/L (12-78); Albumin/Globulin Ratio 1.1 (1.1-1.8); Alkaline Phosphatase 153 U/L (38-126); Anion Gap 12.1 mEq/L (5-15); Aspartate Amino Transferase 96 U/L (14-36); Bilirubin,Total 0.7 mg/dl (0.2-1.3); Blood Urea Nitrogen 13 mg/dl (7-17); Calcium 8.8 mg/dl (8.4-10.2); Carbon Dioxide 23 mmol/L (22.0-30.0); Creatinine Clearance Estimated 44 mL/min (50-200); Estimated Glomerular Filt Rate 49 ml/min (>60); GFR (African American) 60 ML/MIN (>60); Globulin 3.5 g/dL (1.3-3.2); Glucose 92 mg/dl (74-100); Lipase 442 U/L (23-300); Total Protein,Serum 7.5 g/dl (6.3-8.2)
--- NOTE | 2020-09-19 07:10 | PC.NURSE ---
REPORT GIVEN TO Hany CASTRO RN
[2020-09-19 08:16] VITALS: BP 145/76; PULSE 90; RESP 18; TEMP 36.5; O2SAT 99
--- NOTE | 2020-09-19 08:53 | HMH.GSPN ---
Subjective Narrative: Patient feels relatively well. She has taken some clear liquids since her ERCP. Bowels moving. Progress Note: A&P (1) Pancreatitis, acute Status: Acute (2) Cholelithiasis Status: Acute (3) Renal insufficiency Status: Acute (4) Hypothyroidism (acquired) Status: Chronic (5) Hypertension Status: Chronic (6) Hyperlipemia Status: Chronic (7) Elevated LFTs Status: Acute Assessment and Plan for All Diagnoses:: I will advance her to a low-fat diet. If clinically doing well with tolerating a diet may be able to discharge soon with outpatient follow-up for cholecystectomy. Exam Vital signs and Labs for Last 24 Hours: Temp Pulse Resp BP Pulse Ox 97.7 F 90 18 145/76 H 99 09/19/20 08:16 09/19/20 08:16 09/19/20 08:16 09/19/20 08:16 09/19/20 08:16 Laboratory Results - last 24 hr 09/19/20 02:25: WBC 8.3, RBC 4.84, Hgb 13.3, Hct 41.7, MCV 86.1, MCH 27.4, MCHC 31.8, RDW 14.3, Plt Count 219, MPV 7.9, Neut % (Auto) 83.1 H, Lymph % (Auto) 10.0, [place] % (Auto) 4.4, Eos % (Auto) 2.1, Baso % (Auto) 0.3, Neut # (Auto) 6.9, Lymph # (Auto) 0.8, [place] # (Auto) 0.4, Eos # (Auto) 0.2, Baso # (Auto) 0.0 09/19/20 02:25: Sodium 136, Potassium 4.1, Chloride 105, Carbon Dioxide 23, Anion Gap 12.1, BUN 13, Creatinine 1.10 H, Estimated Creat Clear 44, Estimated GFR 49 L, Est GFR ( Amer) 60, Glucose 92, Calcium 8.8, Total Bilirubin 0.7, AST 96 H D, ALT 194 H, Alkaline Phosphatase 153 H, Total Protein 7.5, Albumin 4.0, Globulin 3.5 H, Albumin/Globulin Ratio 1.1, Lipase 442 H I & O for Last 24 hours: Intake & Output 09/16/20 09/17/20 09/18/20 09/19/20 11:59 11:59 11:59 11:59 Intake Total 2300 / 2300 480 / 480 240 / 240 Output Total 0 / 0 Balance 2300 / 2300 480 / 480 240 / 240 Weight 244 lb 4 oz 262 lb 8 oz - *Routine Abdominal Exam Present: soft
--- NOTE | 2020-09-19 08:53 | HMH.ACPN2 ---
Internal Medicine - PN: Subj *Date: 09/19/20 *Time: 08:53 Interval history: She has done well following her ERCP yesterday. She required no pain medication or nausea medication during the night. Her bowels move last night. She is awaiting decision about surgery with Dr. Cardenas. Exam Vital signs and Labs for Last 24 Hours: Temp Pulse Resp BP Pulse Ox 97.7 F 90 18 145/76 H 99 09/19/20 08:16 09/19/20 08:16 09/19/20 08:16 09/19/20 08:16 09/19/20 08:16 Laboratory Results - last 24 hr 09/19/20 02:25: WBC 8.3, RBC 4.84, Hgb 13.3, Hct 41.7, MCV 86.1, MCH 27.4, MCHC 31.8, RDW 14.3, Plt Count 219, MPV 7.9, Neut % (Auto) 83.1 H, Lymph % (Auto) 10.0, [place] % (Auto) 4.4, Eos % (Auto) 2.1, Baso % (Auto) 0.3, Neut # (Auto) 6.9, Lymph # (Auto) 0.8, [place] # (Auto) 0.4, Eos # (Auto) 0.2, Baso # (Auto) 0.0 09/19/20 02:25: Sodium 136, Potassium 4.1, Chloride 105, Carbon Dioxide 23, Anion Gap 12.1, BUN 13, Creatinine 1.10 H, Estimated Creat Clear 44, Estimated GFR 49 L, Est GFR ( Amer) 60, Glucose 92, Calcium 8.8, Total Bilirubin 0.7, AST 96 H D, ALT 194 H, Alkaline Phosphatase 153 H, Total Protein 7.5, Albumin 4.0, Globulin 3.5 H, Albumin/Globulin Ratio 1.1, Lipase 442 H I & O for Last 24 hours: Intake & Output 09/16/20 09/17/20 09/18/20 09/19/20 11:59 11:59 11:59 11:59 Intake Total 2300 / 2300 480 / 480 240 / 240 Output Total 0 / 0 Balance 2300 / 2300 480 / 480 240 / 240 Weight 244 lb 4 oz 262 lb 8 oz Narrative: She is sitting up in the chair and is alert and oriented. Appears in no distress. Color is normal. Lungs are clear to auscultation. Heart is distant but regular with no ectopy. Abdomen is obese, soft, nondistended with no tenderness. Extremities show trace pretibial edema. Assessment and Plan (1) Pancreatitis, acute Status: Acute Qualifiers: Qualified Code(s): K85.10 - Biliary acute pancreatitis without necrosis or infection Category: Medical Code(s): K85.90 - Acute pancreatitis without necrosis or infection, unspecified (2) Cholelithiasis Status: Acute Qualifiers: Qualified Code(s): K80.71 - Calculus of gallbladder and bile duct without cholecystitis with obstruction Category: Medical Code(s): K80.20 - Calculus of gallbladder without cholecystitis without obstruction (3) Renal insufficiency Status: Acute Category: Medical Code(s): N28.9 - Disorder of kidney and ureter, unspecified (4) Hypothyroidism (acquired) Status: Chronic Category: Medical Code(s): E03.9 - Hypothyroidism, unspecified (5) Hypertension Status: Chronic Category: Medical Code(s): I10 - Essential (primary) hypertension (6) Hyperlipemia Status: Chronic Category: Medical Code(s): E78.5 - Hyperlipidemia, unspecified (7) Elevated LFTs Status: Acute Category: Medical Code(s): R79.89 - Other specified abnormal findings of blood chemistry - Assessment and plan all Dx Assessment and Plan for all problems:: She is clinically improved after her ERCP. Her liver enzymes continue to improve. Her lipase bumped up slightly from yesterday. Awaiting surgical plans per Dr. Cardenas.
--- NOTE | 2020-09-19 10:25 | PC.NURSE ---
1013 Discharge education provided to pt, questions encouraged and answered. Pt gathering belongings for discharge and getting dressed, reports that she does not need any assistance as family member is at bedside. Will call out when she is ready ot be escorted to private vehicle.
--- NOTE | 2020-09-22 14:17 | HMH.DCSUM ---
General - General Admission date:: 09/17/20 <Hesham Roblero - 10/05/20 22:16> 09/17/20 <Linda Lamas - 09/22/20 14:24> Discharge date: 09/19/20 <Linda Lamas - 09/22/20 14:24> HPI HPI: Patient is a 70-year-old female. She states that on 09/15/20 she had developed some upper abdominal pains which she thought was gas pain. She did have some associated bloating. This had transiently improved however last night it recurred. This was across the upper abdomen with radiation into her back. She presented to the emergency department. She was seen and evaluated and underwent work-up. This revealed elevation of liver function tests with a bilirubin of 2.5. She had elevation of pancreatic enzymes. CT scan imaging revealed findings of gallstones with dilated common bile duct with probable common bile duct stone. Surgery was contacted. It is felt that the patient may require transfer for more emergent ERCP for choledocholithiasis and biliary pancreatitis. Discussion was held with gastroenterology who felt that she could be admitted for urgent ERCP when available. She was admitted and gastroenterology and surgical consultations were obtained. (above as per Dr. Cardenas) <Linda Lamas - 09/22/20 14:24> Hospital Course Hospital Course: Patient was admitted and surgery and GI were consulted. Dr. Cardenas saw the patient and planned for cholecystectomy on outpatient basis once her pancreatitis resolved. Dr. Dhaliwal was scheduled to see the patient for an ERCP. She was started on pain medication and IV fluids. She was able to drink some liquids with minimal vomiting and nausea. Her pain did improve. Her bilirubin normalized and her pancreatic enzymes decreased significantly. Her liver tests improved as well. She was seen by Dr. Dhaliwal on 09/18/2020 and he performed an ERCP with sphincterotomy, balloon extraction, and cold biopsies. He did feel the patient had gallstone pancreatitis and could undergo cholecystectomy as an elective outpatient procedure or while in the hospital. The cholangiographic imaging showed evidence of early cholecystitis therefore he recommended considering earlier cholecystectomy. Dr. Cardenas felt she could advance to a low-fat diet and would be able to be discharged with outpatient follow-up for cholecystectomy. She was stable to be discharged home and will follow up with both Dr. Annika Cardenas. <Linda Lamas - 09/22/20 14:24> Objective Vital signs: Temp Pulse Resp BP Pulse Ox 97.7 F 90 18 145/76 H 99 09/19/20 08:16 09/19/20 08:16 09/19/20 08:16 09/19/20 08:16 09/19/20 08:16 <Hesham Roblero - 10/05/20 22:16> Temp Pulse Resp BP Pulse Ox 97.7 F 90 18 145/76 H 99 09/19/20 08:16 09/19/20 08:16 09/19/20 08:16 09/19/20 08:16 09/19/20 08:16 <Linda Lamas - 09/22/20 14:24> Narrative: She is sitting up in the chair and is alert and oriented. Appears in no distress. Color is normal. Lungs are clear to auscultation. Heart is distant but regular with no ectopy. Abdomen is obese, soft, nondistended with no tenderness. Extremities show trace pretibial edema. <CydneyLinda - 09/22/20 14:24> DS: Diagnosis - Discharge Diagnosis (1) Pancreatitis, acute Status: Acute (2) Cholelithiasis Status: Acute (3) Renal insufficiency Status: Acute (4) Hypothyroidism (acquired) Status: Chronic (5) Hypertension Status: Chronic (6) Hyperlipemia Status: Chronic (7) Elevated LFTs Status: Acute <CydneyLinda - 09/22/20 14:17> (1) Pancreatitis, acute Status: Acute (2) Cholelithiasis Status: Acute (3) Renal insufficiency Status: Acute (4) Hypothyroidism (acquired) Status: Chronic (5) Hypertension Status: Chronic (6) Hyperlipemia Status: Chronic (7) Elevated LFTs Status: Acute <Hesham Roblero - 10/05/20 22:16> Discharge Plan - Patient Discharge Instru
== END 2020-09-19 10:35 | disposition home or self-care (01) | DRG 444 ==
LOC: ER 02:27 → 2ND 05:36 → OB 16:35
PROVIDERS: Internal Medicine Gastroenterology; Surgery; Admitting Provider Family Medicine; Emergency Provider Emergency Medicine; PCP Physician Assistant; Visit Provider Family Medicine
DX: K80.71 Calculus of gallbladder and bile duct without cholecystitis with obstruction (principal); K85.10 Biliary acute pancreatitis without necrosis or infection; Z68.41 Body mass index [BMI] 40.0-44.9, adult; E03.9 Hypothyroidism, unspecified; E66.01 Morbid (severe) obesity due to excess calories; Z87.891 Personal history of nicotine dependence; I10 Essential (primary) hypertension; E78.5 Hyperlipidemia, unspecified; R74.8 Abnormal levels of other serum enzymes
CPT/HCPCS: 43264; 43262; 36415; 74177; 74330; 76705; 80053; 81001; 82150; 83615; 83690; 84145; 85025; 85651; 86140; 87581; 87633; 87798; 88305; 96365; 96366; 96367; 96375; 99284; J1956; J2405; Q9967

== ENCOUNTER → 2020-10-04 08:52 | Outpatient (CLI) | payer MEDICARE, SELFPAY ==
[2020-10-04 10:05] LABS: Basophils # 0.1 K/mm3 (0-0.2); Basophils % 0.9 % (0.1-2.0); Eosinophils # 0.4 K/mm3 (0.0-0.4); Eosinophils % 4.6 % (0.1-12.0); Hematocrit 42.8 % (37.0-47.0); Hemoglobin 13.7 g/dL (12.2-16.2); Lymphocytes # 1.7 K/mm3 (0.7-4.5); Lymphocytes % 21.4 % (10-50); Mean Corpuscular HGB Conc 31.9 g/dL (31.8-35.4); Mean Corpuscular Hemoglobin 27.3 pg (27.0-31.2); Mean Corpuscular Volume 85.5 fl (81-99); Monocytes # 0.4 K/mm3 (0.1-1.0); Neutrophils # 5.5 K/mm3 (1.8-7.8); Neutrophils % 68.1 % (37.0-80.0); Platelet Count 393 K/mm3 (142-424)
[2020-10-04 11:28] LABS: Alanine Aminotransferase 38 U/L (12-78); Albumin Level 4.3 g/dl (3.5-5.0); Albumin/Globulin Ratio 1.4 (1.1-1.8); Alkaline Phosphatase 110 U/L (38-126); Amylase 66 U/L (30-110); Anion Gap 16.1 mEq/L (5-15); Aspartate Amino Transferase 37 U/L (14-36); Bilirubin,Total 0.4 mg/dl (0.2-1.3); Blood Urea Nitrogen 33 mg/dl (7-17); Calcium 10.4 mg/dl (8.4-10.2); Carbon Dioxide 23 mmol/L (22.0-30.0); Chloride 101 mmol/L (98-107); Estimated Glomerular Filt Rate 32 ml/min (>60); GFR (African American) 39 ML/MIN (>60); Globulin 3.1 g/dL (1.3-3.2); Glucose 104 mg/dl (74-100); Lipase 165 U/L (23-300); Potassium 5.1 mmoL/L (3.5-5.1); Sodium 135 mmol/L (136-145); Total Protein,Serum 7.4 g/dl (6.3-8.2)
[2020-10-04 11:42] LABS: Coronavirus 19 IgG Antibody Negative (Negative); Coronavirus 19 IgM Antibody Negative (Negative)
== END ==
PROVIDERS: PCP Physician Assistant; Visit Provider Surgery
DX: Z01.812 Encounter for preprocedural laboratory examination (principal); Z20.822 Contact with and (suspected) exposure to COVID-19; K80.20 Calculus of gallbladder without cholecystitis without obstruction
CPT/HCPCS: 80053; 82150; 83690; 85025; 86328

== ENCOUNTER 2020-10-06 06:06 | Day surgery (SDC) | payer MEDICARE, SELFPAY ==
[2020-10-05 10:53] VITALS: BMI 41.5
[2020-10-06] VITALS (11 sets, daily range): BP systolic 106–162; BP diastolic 36–89; PULSE 76–94; RESP 12–18; TEMP 36.2–42.7; O2SAT 94–98
--- NOTE | 2020-10-06 08:31 | HMH.OPNOTE ---
Date of procedure: 10/06/20 Pre-op Diagnosis:: Recent biliary pancreatitis Post-op Diagnosis:: Same Procedure performed:: Laparoscopic cholecystectomy Surgeon:: Cordell Cardenas MD WASH TUB MACHINE OPERATOR:: Hitesh Fox Anesthesia: GETA Estimated blood loss (mL): 20 Clinical Note:: Patient is a 70-year-old female. She was recently admitted with acute pancreatitis which was deemed to be biliary in nature based on imaging and laboratory studies. She did undergo gastroenterology consultation as an inpatient and underwent ERCP. She convalesced well and was discharged home for outpatient cholecystectomy. Operative findings:: She had a somewhat thickened gallbladder. She had fatty infiltration of the liver. There were relatively extensive intra-abdominal adhesions from previous large midline laparotomy. Operative note:: Patient was taken the operating room. She was given preoperative intravenous antibiotics. In the operating room she was placed in a supine position. General anesthesia was induced. Abdomen was prepped and draped in the standard surgical fashion. Due to the extensive large midline laparotomy 5 mm trocar was inserted in the left subcostal region under laparoscopic visualization. CO2 pneumoperitoneum was achieved to 15 mmHg. Laparoscopic surveillance was carried out and she did have relatively extensive intra-abdominal adhesions mostly of omentum adherent anteriorly. 5 mm trocar was inserted in the left lateral abdomen. Using Metzenbaum dissection adhesions were taken down to allow for traditional trocar placement. 11 mm trocar was inserted inferior to the umbilicus and her previous laparoscopy scar. She was positioned in reverse Trendelenburg. A couple of 5 mm trochars were inserted in the right upper abdomen. 11 mm trocar was inserted in the epigastrium. Gallbladder showed signs of fatty infiltration consistent with steatohepatitis. Liver was elevated and the gallbladder was grasped retracted anteriorly and superiorly over the dome of the liver. Infundibulum of the gallbladder is retracted anterior laterally. Blunt dissection was carried out at the neck of the gallbladder bluntly incising the visceral peritoneum. Dissection was carried out identifying and isolating the cystic duct and cystic artery. Cystic duct was isolated, multiply clipped, and divided. Cystic duct was somewhat generous. Cystic artery was carefully coagulated with MICKIE ultrasonic harmonic lazarus and divided. Gallbladder was dissected free from the liver in a retrograde fashion using MICKIE ultrasonic harmonic lazarus. Gallbladder was placed within an Endo Catch retrieval device and removed from the peritoneal cavity via the umbilical trocar site. Gallbladder fossa was inspected for hemostasis which was assured. Limited irrigation was performed. Fascia at the umbilicus was closed with the laparoscopic Endo Close device. Local anesthetic was infiltrated. All trocar incisions were closed with 4-0 Monocryl in a subcuticular fashion. Steri-Strips and dressings were applied. Condition: stable Disposition: PACU Specimens:: Gallbladder and contents Complications:: None immediately apparent
--- NOTE | 2020-10-06 08:39 | P.PN_ITS ---
[facility] Anesthesia Checklist - Structural Data Admitted From: Home Planned Operative Procedure/s: jade jackson Consent for Planned Operative Procedure(s) Verified: Yes - Additional verifications Anesthesia Reactions: No Hx Blood Transfusions: No Blood Transfusion Reaction: No - Airway Assessment C-Spine Mobility Assessed: Yes TMJ Mobility Assessed: Yes Dentition: Edentulous - Neurological Assessment Level of Consciousness: Awake, Alert, Appropriate - Anesthesia Plan Anesthesia Risk discussed: Yes Anesthesia Plan: Verified ASA Class: III Anesthesia Type: General [facility] History I have reviewed the patient's past medical history: Yes Medical History: Reports:: Cancer (ovarian), Hyperlipidemia, Hypertension Denies:: Diabetes Mellitus Type 1, Diabetes Mellitus Type 2, Internal Pacemaker, MRSA, Seizures *Have you ever received a pneumonia vaccine?: Yes *Have you received a flu vaccine this season?: No Other Medical History: Reports: Hypothyroidism, Thyroid Disease. Denies: Blood Transfusion Reaction Anesthesia experience/problems:: none Other Surgeries: Yes: Hysterectomy-Total. No: Pacemaker Amputation: No Fractures: No - *Social History Last grade of school completed: High school graduate Smoking Status: Former smoker Alcohol Intake: never Substance Use Type: denies use *Occupational Status:: retired Housing: house Household Members: none *Travel in the last 8 weeks: None Family Hx:: Non-contributory
--- NOTE | 2020-10-06 08:40 | HMH.ANESI ---
[facility] Anesthesia Record Part I Intake, IV Amount: 1,200 Estimated blood loss (mL): 0 Urine output (mL): 0 Blood Pressure: 124/62 SaO2: 94 Pulse Rate: 94 Respiratory Rate: 12 Temperature: 99 F Patient is:: Awake, Stable Stable to PACU at:: 08:35
--- NOTE | 2020-10-07 09:28 | P.PN_ITS ---
[facility] Anesthesia Record Part II Discharge Time: 09:05 Destination: [facility] PACU nurse assessment reviewed?: Yes Patient Condition:: Good Anesthesia Complications:: None Swallowing reflex intact?: Yes Cyanosis?: No Blood Pressure: 130/74 Pulse Rate: 78 Temperature: 97.1 F Mental Status: Alert & Oriented Pain level:: 4 Nausea and/or vomitting:: None Intake, IV Amount: 1,500
[2020-10-07 09:29] VITALS: BP 130/74; PULSE 78; TEMP 36.2
== END 2020-10-06 10:02 | disposition home or self-care (01) ==
LOC: OR 06:07
PROVIDERS: PCP Physician Assistant; Visit Provider Surgery
PROC: 0FT44ZZ Resection of Gallbladder, Percutaneous Endoscopic Approach (ICD-10-PCS; CPT 47562; principal; 2020-10-06 07:30)
DX: K85.10 Biliary acute pancreatitis without necrosis or infection (principal); K76.0 Fatty (change of) liver, not elsewhere classified; K66.0 Peritoneal adhesions (postprocedural) (postinfection); K80.20 Calculus of gallbladder without cholecystitis without obstruction; Z85.43 Personal history of malignant neoplasm of ovary; I10 Essential (primary) hypertension; E78.5 Hyperlipidemia, unspecified; E03.9 Hypothyroidism, unspecified
CPT/HCPCS: 47562; 88304; 96374; J2405; J2710

== ENCOUNTER → 2023-04-17 12:25 | Outpatient (CLI) | payer MEDICARE, SELFPAY ==
[2023-04-17 12:31] LABS: Microscopic, Urine URINE MICROSCOPIC (MICROSCOPIC)
[2023-04-17 12:56] LABS: Basophils % 0.3 % (0.1-2.0); Eosinophils # 0.3 K/mm3 (0.0-0.4); Hematocrit 43.5 % (37.0-47.0); Hemoglobin 14.8 g/dL (12.2-16.2); Lymphocytes % 24.9 % (10-50); Mean Corpuscular Hemoglobin 29.6 pg (27.0-31.2); Mean Corpuscular Volume 87.1 fl (81-99); Mean Platelet Volume 8.1 fl (7.4-10.4); Monocytes # 0.4 K/mm3 (0.1-1.0); Monocytes % 4.4 % (1.7-9.3); Neutrophils # 5.3 K/mm3 (1.8-7.8); Neutrophils % 66.4 % (37.0-80.0); Platelet Count 264 K/mm3 (142-424); Red Blood Count 4.99 M/mm3 (4.20-5.40); Red Cell Distribution Width 14.2 % (11.5-17.5)
[2023-04-17 13:23] LABS: Appearance,Urine CLEAR (Clear); Bilirubin,Urine Negative (Negative); Blood, Urine Negative (Negative); Color,Urine YELLOW (Yellow); Glucose,Urine (UA) Negative (Negative); Ketones,Urine Negative (Negative); Leukocyte Esterase,Urine Negative (Negative); Nitrate,Urine Negative (Negative); Protein,Urine Negative (Negative); Urobilinogen,Urine 0.2 EU/dl (0.2)
[2023-04-17 14:17] LABS: Albumin Level 4.5 g/dl (3.5-5.0); Anion Gap 18.5 mEq/L (5-15); Blood Urea Nitrogen 27 mg/dl (7-17); Calcium 9.6 mg/dl (8.4-10.2); Carbon Dioxide 21 mmol/L (22.0-30.0); Chloride 100 mmol/L (98-107); Estimated Glomerular Filt Rate 32 ml/min (>60); GFR (African American) 38 ML/MIN (>60); Glucose 107 mg/dl (74-100); Phosphorous 3.9 mg/dl (2.5-4.5); Potassium 4.5 mmoL/L (3.5-5.1); Sodium 135 mmol/L (136-145)
[2023-04-17 14:20] LABS: Creatinine,Urine Random 169 mg/dL (Not Estab.)
[2023-04-17 14:29] LABS: Intact Parathyroid Hormone 205.7 pg/mL (7.5-53.5)
[2023-04-17 14:30] LABS: 25-OH Vitamin D, Total 65.6 ng/mL (30-100)
[2023-04-17 14:32] LABS: Bacteria,Urine Trace /lpf; Squamous Epithelial Cell,Urine Occasional #/hpf (0-5)
== END ==
PROVIDERS: PCP Physician Assistant; Visit Provider Internal Medicine Nephrology
DX: E55.9 Vitamin D deficiency, unspecified (principal); N28.9 Disorder of kidney and ureter, unspecified
CPT/HCPCS: 36415; 80069; 81001; 82306; 82570; 83970; 84155; 85025

== ENCOUNTER 2023-08-10 12:38 | Outpatient (CLI) | payer MEDICARE, SELFPAY ==
--- NOTE | 2023-08-10 12:47 | US_ITS ---
FINAL REPORT TECHNIQUE: Ultrasound images of the kidneys and bladder were obtained. CLINICAL HISTORY: CKD STAGE 3 FINDINGS: The right kidney measures 8.7 cm in [id number] length. There is no hydronephrosis, renal mass, or renal stone. There is mild renal cortical thinning. The left kidney measures 8.7 cm in [id number] length. There is no hydronephrosis. An 8 mm cortical cyst is noted in the upper pole. No renal stone. There may be mild renal cortical thinning. IMPRESSION: Mild bilateral renal cortical thinning. Left renal cyst. Authenticated and ERN
[2023-08-10 13:26] LABS: Microscopic, Urine URINE MICROSCOPIC (MICROSCOPIC)
[2023-08-10 13:51] LABS: Appearance,Urine SL CLOUDY (Clear); Bilirubin,Urine Negative (Negative); Blood, Urine Negative (Negative); Color,Urine YELLOW (Yellow); Glucose,Urine (UA) Negative (Negative); Hematocrit 45.6 % (37.0-47.0); Hemoglobin 14.6 g/dL (12.2-16.2); Ketones,Urine Negative (Negative); Leukocyte Esterase,Urine Negative (Negative); Mean Corpuscular Hemoglobin 28.5 pg (27.0-31.2); Mean Corpuscular Volume 89.1 fl (81-99); Nitrate,Urine Negative (Negative); Platelet Count 347 K/mm3 (142-424); Protein,Urine Negative (Negative); Red Blood Count 5.12 M/mm3 (4.20-5.40); Red Cell Distribution Width 14.1 % (11.5-17.5); Specific Gravity, Urine 1.015 (1.005-1.030); Urobilinogen,Urine 0.2 EU/dl (0.2); White Blood Count 9.5 K/mm3 (4.8-10.8)
[2023-08-10 13:56] LABS: Creatinine,Urine Random 103 mg/dL (Not Estab.)
[2023-08-10 14:10] LABS: Bacteria,Urine 1+ /lpf; Hyaline Casts,Urine Occasional #/lpf (0)
[2023-08-10 14:25] LABS: Albumin Level 4.2 g/dl (3.5-5.0); Anion Gap 14.9 mEq/L (5-15); Blood Urea Nitrogen 33 mg/dl (7-17); Calcium 9.6 mg/dl (8.4-10.2); Carbon Dioxide 23 mmol/L (22.0-30.0); Chloride 101 mmol/L (98-107); Estimated Glomerular Filt Rate 34 ml/min (>60); GFR (African American) 41 ML/MIN (>60); Glucose 100 mg/dl (74-100); Phosphorous 3.6 mg/dl (2.5-4.5); Potassium 4.9 mmoL/L (3.5-5.1); Sodium 134 mmol/L (136-145)
== END 2023-08-10 23:59 ==
LOC: RAD 12:39
PROVIDERS: PCP Physician Assistant; Visit Provider Internal Medicine Nephrology
DX: N18.32 Chronic kidney disease, stage 3b (principal)
CPT/HCPCS: 36415; 76770; 80069; 81001; 82570; 84155; 85014; 85018; 85048; 85049

== ENCOUNTER 2023-08-17 16:06 | Outpatient (POV) | payer MEDICARE, SELFPAY | END 2023-08-17 23:59 | disposition home or self-care (01) | LOC: SC 16:07 | PROVIDERS: Visit Provider Internal Medicine Nephrology | DX: Z00.00 Encounter for general adult medical examination without abnormal findings (principal) ==

== ENCOUNTER 2024-10-18 10:01 | Outpatient (CLI) | payer MEDICARE, SELFPAY ==
--- OUTSIDE RECORDS SUMMARY | 2024-10-18 10:05 | XMS_ITS ---
Author Organization Unknown [facility] Start Date Provider Encounter for Check-up [id number] [facility]
[2024-10-18 10:57] LABS: Basophils # 0.1 K/mm3 (0-0.2); Basophils % 0.8 % (0.1-2.0); Eosinophils # 0.1 Kmm3 (0.0-0.4); Eosinophils % 1.8 % (0.1-12.0); Hematocrit 46.1 % (37.0-47.0); Hemoglobin 14.9 g/dL (12.2-16.2); Immature Granulocytes # 0.02 10^3uL; Immature Granulocytes % 0.3 %; Lymphocytes # 1.5 K/mm3 (0.7-4.5); Lymphocytes % 18.7 % (10-50); Mean Corpuscular HGB Conc 32.3 g/dL (31.8-35.4); Mean Corpuscular Hemoglobin 27.8 pg (27.0-31.2); Mean Platelet Volume 10.3 fl (7.4-10.4); Monocytes # 0.5 K/mm3 (0.1-1.0); Monocytes % 6.4 % (1.7-9.3); Neutrophils # 5.6 K/mm3 (1.8-7.8); Nucleated Red Blood Cells # 0 10^3/uL; Nucleated Red Blood Cells % 0 %; Platelet Count 325 K/mm3 (142-424); Red Blood Count 5.36 M/mm3 (4.20-5.40); Red Cell Distribution Width 13.3 % (11.5-17.5); Red Cell Distribution Width-SD 41.7 fL; White Blood Count 7.8 K/mm3 (4.8-10.8)
[2024-10-18 11:46] LABS: Alanine Aminotransferase 30 U/L (12-78); Albumin Level 4.4 g/dl (3.5-5.0); Albumin/Globulin Ratio 1.6 (1.1-1.8); Alkaline Phosphatase 105 U/L (38-126); Anion Gap 11.7 mEq/L (5-15); Aspartate Amino Transferase 33 U/L (14-36); Bilirubin,Total 0.7 mg/dl (0.2-1.3); Blood Urea Nitrogen 33 mg/dl (7-17); Calcium 9.5 mg/dl (8.4-10.2); Carbon Dioxide 23 mmol/L (22.0-30.0); Chloride 104 mmol/L (98-107); Chol/HDL Ratio 3.7 (1-3.5); Cholesterol 132 mg/dl (140-200); Estimated Glomerular Filt Rate 30 ml/min (>60); GFR (African American) 36 ML/MIN (>60); Globulin 2.7 g/dL (1.3-3.2); Glucose 108 mg/dl (74-100); HDL Cholesterol 36 mg/dl (40-60); Potassium 4.7 mmoL/L (3.5-5.1); Sodium 134 mmol/L (136-145); Total Protein,Serum 7.1 g/dl (6.3-8.2); Triglycerides 216 mg/dl (30-150); VLDL Cholesterol 43 mg/dL (0-40)
[2024-10-18 11:57] LABS: Direct LDL Cholesterol 52.98 mg/dL (100-129)
[2024-10-18 12:02] LABS: Free T4 (Free Thyroxine) 1.23 ng/dl (0.78-2.19)
[2024-10-18 12:12] LABS: Hemoglobin A1C 5.9 % (4.0-6.0)
[2024-10-18 12:16] LABS: Thyroid Stimulating Hormone 7.25 uIU/mL (0.465-4.68)
[2024-10-18 17:31] LABS: Creatinine,Urine Random 159 mg/dL (Not Estab.)
[2024-10-23 10:03] LABS: Magnesium 2.1 mg/dl (1.6-2.3)
[2024-10-23 10:16] LABS: 25-OH Vitamin D, Total 71.8 ng/mL (30-100)
== END 2024-10-18 23:59 | disposition home or self-care (01) ==
LOC: LAB 10:03
PROVIDERS: PCP Physician Assistant; Visit Provider Student in an Organized Health Care Education/Training Program
DX: I10 Essential (primary) hypertension (principal); E78.2 Mixed hyperlipidemia; E55.9 Vitamin D deficiency, unspecified; E03.9 Hypothyroidism, unspecified; R73.01 Impaired fasting glucose; N18.31 Chronic kidney disease, stage 3a; E87.1 Hypo-osmolality and hyponatremia; I12.9 Hypertensive chronic kidney disease with stage 1 through stage 4 chronic kidney disease, or unspecified chronic kidney disease
CPT/HCPCS: 36415; 80053; 80061; 82043; 82306; 82570; 83036; 83735; 83930; 84439; 84443; 85025

== ENCOUNTER 2024-10-23 07:43 | Day surgery (SDC) | payer MEDICARE, SELFPAY ==
[2024-10-21 17:24] VITALS: BMI 41.5
[2024-10-23 09:00] VITALS: BP 131/78; PULSE 91; RESP 18; TEMP 36.6; O2SAT 96
[2024-10-23] MEDS: LACTATED RINGERS 1000ML 1,000 ML 50 ML IV (09:05)
--- NOTE | 2024-10-23 09:27 | EXP.HP ---
History of Present Illness *Admission Date: 10/23/24 *Reason for visit:: Personal history of colon polyps and family history of colon cancer *History of present illness: Mrs. Jack is a 74-year-old female who is here for follow-up surveillance colonoscopy. She does have a history of colon polyps (unspecified) and family history of colon cancer (brother with colon cancer at age 42). The patient's last colonoscopy was 8 years ago. The examination is deemed medically necessary for surveillance/high risk screening colonoscopy. The patient has been seen, interviewed and examined prior to the procedure by both myself and the anesthesia provider. [facility] Disclaimer: The information contained in this section may have been updated after the patient was seen, as this information can be updated by other users. Medical History (Updated 10/23/24 @ 09:36 by Adama Dhaliwal II, MD) Hypothyroidism Hyperlipemia Hypertension Hysterectomy planned Cholecystectomy planned Family History (Updated 10/21/24 @ 17:20 by Coral Fortune RN) Other No significant family history Social History (Updated 10/21/24 @ 17:20 by Coral Fortune RN) Smoking Status: Never smoker alcohol intake: never substance use type: denies use current occupational status: retired Travel in the last 8 weeks?: None household members: none housing: house caffeine: Yes Have you lived/traveled outside US in past 30 days?: No Contact w/someone who lives/traveled outside US past 30 days?: No Exposure to someone with infectious disease in past 14 days?: No Do you have a fever (greater than 100.4 F or 38 C)?: No Have you tested positive for COVID-19?: No Exposed to someone with COVID-19 in past 14 days?: No Do you have a sore throat?: No Do you have a cough?: No Do you have any weakness?: No Do you have any diarrhea?: No Are you experiencing any unusual bleeding?: No Do you have any muscle aches/pain?: No Do you have any abdominal pain?: No Are you experiencing loss of taste or smell?: No Other Medical History Have you received the Flu Vaccine for this season: No Have you received the Pneumonia Vaccine: Yes Review of Systems Review of Systems Review of systems (narrative): Negative *Cardiovascular Comments: Negative *Gastrointestinal Comments: Negative *Genitourinary Comments: Negative *Musculoskeletal Comments: Negative *Neurologic Comments: Negative Meds Home Medications and Allergies Home Medications ?Medication ?Instructions ?Recorded ?Confirmed ?Type amlodipine 5 mg tablet 5 mg PO DAILY High blood pressure 09/17/20 10/21/24 History aspirin 81 mg tablet,delayed 81 mg PO DAILY heart health 09/17/20 10/21/24 History release calcium polycarbophil 625 mg tablet 1,250 mg PO DAILY Diet supplement 09/17/20 10/21/24 History cholecalciferol (vitamin D3) 25 2,000 unit PO DAILY Diet supplement 09/17/20 10/21/24 History mcg (1,000 unit) capsule levothyroxine 25 mcg tablet 25 mcg PO DAILY hypothyroidism 09/17/20 10/21/24 History metoprolol succinate 50 mg 50 mg PO DAILY High blood pressure 09/17/20 10/21/24 History tablet,extended release 24 hr pravastatin 20 mg tablet 20 mg PO HS Cholesterol 09/17/20 10/21/24 History solifenacin 10 mg tablet 10 mg PO DAILY 10/21/24 10/21/24 History New Prescriptions to Start Prescriptions: Allergies Allergy/AdvReac Type Severity Reaction Status Date / Time No Known Allergies Allergy Verified 10/16/20 10:08 Exam Data for Last 24 hours Vital signs and Labs for Last 24 Hours: Temp Pulse Resp BP Pulse Ox O2 Del Method 97.9 F 91 H 18 131/78 96 Room Air 10/23/24 09:00 10/23/24 09:00 10/23/24 09:00 10/23/24 09:00 10/23/24 09:00 10/23/24 09:00 I & O for Last 24 hours: Intake & Output 10/20/24 10/21/24 10/22/24 10/23/24 23:59 23:59 23:59 23:59 Weight 250 lb *Routine HEENT Exam Head: Present normocephalic Eye: Present EOMI and PERRL ENT: Present mucous membranes moist *Routine Neck Exam Neck: Present supple *Routine Respiratory Exam Respiratory: Present CTA bilaterally *Routine Cardiovascular Exam Cardiovascular: Present RRR *Routine Abdominal Exam Abdominal: Present soft and normoactive bowel sounds; Absent tenderness *Routine Rectal Exam Rectal:: deferred *Routine Genitalia Exam Genitalia:: deferred *Routine Extremities Exam Extremities: Absent cyanosis, clubbing or edema *Routine Skin Exam Skin: Present warm; Absent rash *Routine Neurological Exam Neurological: Present alert and oriented X3 Assessment and Plan *Assessment and plan (1) Family history of colon cancer: Status: Acute Category: Medical Code(s): Z80.0 - Family history of malignant neoplasm of digestive organs (2) Personal history of colon polyps, unspecified: Status: Acute Category: Medical Code(s): Z86.0100 - Personal history of colon polyps, unspecified Plan A/P: 1. Family history of colon cancer (brother at age 42) and personal history of colon polyps (unspecified) is the preprocedural diagnosis. Her last colonoscopy was 8 years ago. The patient will be anesthetized/sedated using MAC sedation. The patient has been seen and examined. Cardiac and lung assessment prior to the examination is stable. Proceed with planned surveillance/screening colonoscopy.
[2024-10-23 09:31] VITALS: O2SAT 96
--- NOTE | 2024-10-23 09:37 | P.PCN_ITS ---
[facility] Procedure Note Date: 10/23/24 Time: 09:51 Procedure Note:: Colonoscopy Procedure Report: Colonoscopy with cold snare polypectomy Endoscopist: Adama Dhaliwal II, MD Referring physician: Linda Lamas Date of Procedure: October 23, 2024 Equipment: Olympus 190 variable stiffness pediatric colonoscope Sedation: MAC sedation Indication: Mrs. Jack is a 74-year-old female who is here for follow-up screening/surveillance colonoscopy. Her last colonoscopy was 8 years ago and she did have colon polyps removed and was told that she would need follow-up surveillance at 3 to 5 years. She reports that her brother had colon cancer at the age of 42. She reports no abdominal pain, weight loss, change in her bowel habits. She does have occasional spotting of blood on the tissue from internal hemorrhoids. She does report some long-term small caliber and hard bowel movements with intermittent constipation. Procedure: Prior to the procedure, a history and physical exam was performed, and patient's medications and allergies were reviewed. The risks, benefits and alternatives of the sedation and procedure were discussed with the patient. All questions were answered and informed consent was obtained. The patient was brought to the procedure room. Patient identification and proposed procedure were verified by the physician and the nurse. The patient was placed in a left lateral decubitus position and the scope was passed under direct vision. Throughout the procedure, the patient's blood pressure, pulse, and oxygen saturations were monitored continuously. The colonoscopy was accomplished without difficulty. The patient tolerated the procedure well. Findings: On digital rectal examination there was normal rectal tone. There were no external hemorrhoids. The colonoscope was introduced through the anal canal to the rectum and advanced to the cecum. The ileocecal valve and appendiceal orifice were identified. The scope was advanced a short distance into the ileum which appeared grossly normal. The scope was then withdrawn into the colon. There were 4 polyps (ascending x 1 (9 mm), transverse x 2 (3 and 4 mm) and descending x 1 (5 mm)). These were all removed via cold snare polypectomy. The remaining cecum, ascending and transverse colon and mucosa were grossly normal. There were scattered diverticuli throughout the descending and sigmoid colon (LEFT colon). The rectum itself was normal. Upon retroflexion within the rectum there were grade 2 internal hemorrhoids. The preparation was excellent throughout with Maud Preparation Score of 9. The cecal time was 14 minutes. Impression: 1. Colonic polyps x 4 2. Left-sided diverticulosis 3. Grade 2 internal hemorrhoids Plan: I will follow-up the polyp histology and recommend repeat surveillance colonoscopy again in 5 years. This will certainly be based upon her health and desire to continue preventive surveillance. I would encourage a fiber bowel regimen on a long-term daily maintenance basis.
--- NOTE | 2024-10-23 09:38 | P.PNANES_ITS ---
[facility] Disclaimer: The information contained in this section may have been updated after the patient was seen, as this information can be updated by other users. Medical History (Updated 10/23/24 @ 09:36 by Adama Dhaliwal II, MD) Hypothyroidism Hyperlipemia Hypertension Hysterectomy planned Cholecystectomy planned Family History (Updated 10/21/24 @ 17:20 by Coral Fortune RN) Other No significant family history Social History (Updated 10/21/24 @ 17:20 by Coral Fortune RN) Smoking Status: Never smoker alcohol intake: never substance use type: denies use current occupational status: retired Travel in the last 8 weeks?: None household members: none housing: house caffeine: Yes Have you lived/traveled outside US in past 30 days?: No Contact w/someone who lives/traveled outside US past 30 days?: No Exposure to someone with infectious disease in past 14 days?: No Do you have a fever (greater than 100.4 F or 38 C)?: No Have you tested positive for COVID-19?: No Exposed to someone with COVID-19 in past 14 days?: No Do you have a sore throat?: No Do you have a cough?: No Do you have any weakness?: No Do you have any diarrhea?: No Are you experiencing any unusual bleeding?: No Do you have any muscle aches/pain?: No Do you have any abdominal pain?: No Are you experiencing loss of taste or smell?: No [facility] Anesthesia Checklist Patient Identification Patient Identification: Verbal (Name & ) Structural Data Admitted From: Home Planned Operative Procedure/s: colonoscopy Additional verifications Anesthesia Reactions: No Hx Blood Transfusions: No Blood Transfusion Reaction: No Airway Assessment Mallampati Score:: Class II C-Spine Mobility Assessed: Yes TMJ Mobility Assessed: Yes Dentition: Dentures-good fit Neurological Assessment Level of Consciousness: Awake, Alert and Appropriate Anesthesia Plan Anesthesia Risk discussed: Yes Anesthesia Plan: Verified ASA Class: III Anesthesia Type: MAC
[2024-10-23 09:58] VITALS: BP 104/54; PULSE 64; RESP 16; TEMP 36.2; O2SAT 96
[2024-10-23 10:08] VITALS: BP 108/61; PULSE 68; RESP 16; O2SAT 95
[2024-10-23 10:18] VITALS: BP 117/57; PULSE 61; RESP 16; O2SAT 96
[2024-10-23 10:28] VITALS: BP 123/72; PULSE 66; RESP 16; O2SAT 97
== END 2024-10-23 10:28 | disposition home or self-care (01) ==
PROVIDERS: PCP Physician Assistant; Visit Provider Internal Medicine Gastroenterology
PROC: 0DJD8ZZ Inspection of Lower Intestinal Tract, Via Natural or Artificial Opening Endoscopic (ICD-10-PCS; CPT 45378; principal; 2024-10-23 09:30)
DX: Z12.11 Encounter for screening for malignant neoplasm of colon (principal); Z80.0 Family history of malignant neoplasm of digestive organs; Z86.0100 Personal history of colon polyps, unspecified; K59.00 Constipation, unspecified; D12.2 Benign neoplasm of ascending colon; D12.4 Benign neoplasm of descending colon; D12.3 Benign neoplasm of transverse colon; K57.30 Diverticulosis of large intestine without perforation or abscess without bleeding; K64.1 Second degree hemorrhoids
CPT/HCPCS: 45385; 88305; J7120

== ENCOUNTER 2025-05-24 10:14 | Outpatient (CLI) | payer MEDICARE, SELFPAY ==
--- OUTSIDE RECORDS SUMMARY | 2023-12-28 05:30 | XMS_ITS ---
Author Organization [facility] Address [facility] [facility] [address] [id number] Care Team Providers Care Chandelier Maker Name Role Phone Hue Roblero Primary Care Provider NarayanLinda haines Unavailable [phone] Allergies No Known Allergies Results Component Value Reference Range Notes CBC Venipuncture (in house) Reviewed date:12/28/2023 01:12:02 PM Interpretation: Performing Lab: Notes/Report: wbc 8.8 3.5 - 10 lymph 18.3% 15 - 50 mid 6.0% 2 - 15 gran 75.7% 35 - 80 rbc 5.35 3.5 - 5.5 hgb 14.7 11.5 - 16.5 hct 45.9 35 - 55 mcv 85.8 75 - 100 mch 27.6 25 - 35 mchc 32.1 31 - 38 platlet 301 100 - 400 Glycohemoglobin A1c (in hous e) Reviewed date:01/03/2024 03:27:09 PM Interpretation:5.8 Performing Lab: Notes/Report: 5.8 glycohemoglobin 5.8% 5 - 6.5 % P-Comprehensive Metabolic Pa cait (CMP) Reviewed date:01/03/2024 03:27:08 PM Interpretation:Na 134, gluc 111, bun 29, Cr 1.8, gfr 30 Performing Lab: Notes/Report: Test performed by [facility] [address] [place] [address] , [address], [place] [address] Raf Parsons MD, Restaurant Attendant CLIA: [id number] Sodium 134 135-145 mmol/L Potassium 5.0 3.5-5.3 mmol/L Chloride 98 97-108 mmol/L CO2 23 22-32 mmol/L Glucose 111 65-99 mg/dL BUN 29 8-23 mg/dL Creatinine 1.80 0.50-1.00 mg/dL Calcium 9.9 8.6-10.4 mg/dL eGFR by Creatinine 30 >59 mL/min/1.73m2 Protein 7.0 6.0-8.3 g/dL Albumin 4.3 3.5-5.3 g/dL Alkaline Phosphatase 116 35-121 IU/L ALT (SGPT) 22 <5-47 IU/L AST (SGOT) 27 <5-40 IU/L Bilirubin, Total 0.6 <0.2-1.2 mg/dL A/G Ratio 1.6 1.1-2.5 mg/dL P-T4 Free (thyroxine) Reviewed date:01/03/2024 03:27:09 PM Interpretation:Normal Performing Lab: Notes/Report: Test performed by [email or web address] [place] [address] , [place] [address] Raf Parsons MD, Restaurant Attendant CLIA: [id number] Thyroxine Free (free T4) 1.27 0.86-1.76 ng/dL P-Lipid Panel Reviewed date:01/03/2024 03:27:09 PM Interpretation:trigs 216, hdl 34 Performing Lab: Notes/Report: Test performed by [email or web address] [place] [address] , [place] [address] Raf Parsons MD, Restaurant Attendant CLIA: [id number] Cholesterol 150 <200 mg/dL Triglycerides 216 <150 mg/dL HDL Cholesterol 34 >39 mg/dL Cholesterol / HDL Ratio 4.41 0.00-4.44 Ratio Non-HDL Cholesterol 116 <130 mg/dL LDL Cholesterol (Calculation) 73 <130 mg/dL 190 mg/dL and above Very High * Categories as recommended by the 2004 ATPIII guidelines LDL Cholesterol Levels* Less than 100 mg/dL Optimal 100 to 129 mg/dL Near Optimal/ Above Optimal 130 to 159 mg/dL Borderline High 160 to 189 mg/dL High LDL/HDL Ratio 2.1 <3.3 Ratio LDL Cholesterol Patient History % Change: -21% Units: mg/dL Test Date: 11/25/2022 LDL Results: 106 Units: mg/dL % Change: - Test Date: 06/14/2023 LDL Results: 93 Units: mg/dL % Change: -12% Test Date: 12/28/2023 LDL Results: 73 P-TSH Reviewed date:01/03/2024 03:27:09 PM Interpretation:Normal Performing Lab: Notes/Report: Test performed by [facility] [address] [facility] [place] [address] Raf Parsons MD, Restaurant Attendant CLIA: [id number] TSH 2.78 0.43-5.25 mU/L P-Vitamin D 25-Hydroxy Reviewed date:01/03/2024 03:27:09 PM Interpretation:Normal Performing Lab: Notes/Report: Test performed by [facility] [address] [place] [address] , [address], [place] [address] Raf Parsons MD, Restaurant Attendant CLIA: [id number] Vitamin D 25-Hydroxy 63.6 30.0-100.0 ng/mL Interpretation of Vitamin D 25 OH: < 20 ng/mL - Deficiency 20 - 29 ng/mL - Insufficiency 30 - 100 ng/mL - Sufficiency > 100 ng/mL - Super-therapeutic- toxicity may occur above this level. Clinical correlation required. DEXA Hip and Spine Reviewed date:03/15/2024 01:41:35 PM Interpretation: Performing Lab: Notes/Report: Mammogram Reviewed date:03/14/2024 11:49:09 AM Interpretation: Performing Lab: Notes/Report: REASON FOR VISIT 6 Month Check Up w/ Fasting Labs, Needs mammogram, bone density screening, & colon cancer screening Medications Medication SIG (Take, Route, Frequency, Duration) Notes Start Date End Date Status Metoprolol Succinate ER 50 MG take 1 tablet every day orally once a day; Duration: 90 days Active Solifenacin Succinate 10 MG 1 tab(s) orally once a day; Duration: 90 days 03/09/2022 Active Levothyroxine Sodium 25 MCG 1 tab(s) orally once a day; Duration: 90 days Active Aspirin 81 MG 1 tab(s) orally once a day; Duration: 30 day(s) Active amLODIPine Besylate 5 MG 1 tab(s) orally once a day; Duration: 90 days Active Vitamin D3 50 MCG (2000 UT) 1 cap(s) orally once a day Active Meloxicam 15 MG 1 tab(s) orally once a day; Duration: 90 days Not-Takin g Calcium Carbonate 600 MG 1 tab orally bid 12/05/19 20 Not-Taking Ondansetron HCl 4 MG 1 tab(s) orally isatu ry 8 hours Not-Taking Pravastatin Sodium 20 MG 1 tab(s) orally once a day (at bedtime); Duration: 90 days Active Vital Signs Blood pressure systolic 134 mm Hg 12/28/19 24 Blood pressure diastolic 78 mm Hg 024 Heart Rate 80 /min 12/28/2023 Height 65.5 in 12/28/2023 Weight 254.8 lbs 12/28/2023 BMI 41.75 kg/m2 12/28/2023 Encounters Encounter Location Date Provider Diagnosis [facility]im[facility] [address] [facility] [address] [place] [id number] 12/28/2023 Linda Lamas Pain, joint, knee, r ight M25.561 ; Essential hypertension I10 ; Mixed hyperlipidemia E78.2 ; Hypothyroidism (acquired) E03.9 ; Vitamin D deficiency E55.9 ; Overflow incontinence N39.490 ; Polyarthralgia M25.50 ; Impaired fasting glucose R73.01 ; Screening for thyroid disorder Z13.29 ; Osteoporosis screening Z13.820 ; Screening mammogram, encounter for Z.31 and Screen for colon cancer Z12.11 Assessments Encounter Date Diagnosis (ICD Code) Assessment Notes Treatment Notes Treatment Clinical Notes Section Notes 12/28/2023 Pain, joint, knee, right (ICD-10 - M25.561) 12/28/2023 Essential hypertension (ICD-10 - I10) 12/28/2023 Mixed hyperlipidemia (ICD-10 - E78.2) 12/28/2023 Hypothyroidism (acquired) (ICD-10 - E03.9) 12/28/2023 Vitamin D deficiency (ICD-10 - E55.9) 12/28/2023 Overflow incontinence (ICD-10 - N39.490) 12/28/2023 Polyarthralgia (ICD-10 - M25.50) 12/28/2023 Impaired fasting glucose (ICD-10 - R73.01) 12/28/2023 Screening for thyroid disorder (ICD-10 - Z13.29) 12/28/2023 Osteoporosis screening (ICD-10 - Z13.820) 12/28/2023 Screening mammogram, encounter for (ICD-10 - Z12.31) 12/28/2023 Screen for colon cancer (ICD-10 - Z12.11) Plan Of Treatment Pending Test Test Name Order Date X ray : Knee, right 12/28/2023 Next Appt Details Follow Up: via phone to repo rt test results, Reason: Provider Name:Linda Tj Talbert bernice, 07/10/2025 09:30:00 AM, [address] [facility] [address] [facility], [address], [place], [place], [id number], Progress Notes * Lesa JACK RDOB:1950 (75 yo F)Acc No.[id number]:12/28/2023 Progress Notes Patient: Lesa WANG Provider: ARIES Jansen :1950 A ge:73 Y S ex:Female Date:12/28/2023 Address:[address] [place] [address] [address], [place], [id number] Pcp:Hue Roblero Subjective: * Chief Complaints: * 1 . 6 Month Check Up w/ Fasting Labs. 2. Needs mammogram, bone density screening, & colon cancer screening. * HPI: E ndocrinology: Maintenance P t presents today for a 6 month check up. Pt is fasting today. K nee/Aj: Having pain in the right knee. Was told in the past it would need to be replaced. The physician who replaced her left knee retired. c/o knee pain. * ROS: A LLERGY: no C ough. n o R unny nose. D ERMATOLOGY: no R godfrey. n o H charley. E NDOCRINOLOGY: no F atigue. n o W eight loss. * Medical History: H ypertension, Ovarian Cancer 1994. * Surgical History: T otal Hysterectomy 1994, LT knee Replacement, [facility] 12/23/2014, Cholecystectomy- Dr Cardenas 10/06/2020. * Hospitalization/Major Diagno stic Procedure: A cute Pancreatitis- [facility] 09/17/2020. * Family History: F ather: 49 yrs, CA, aneurysm, HBP. M other: 60 yrs, complications of pneumonia, possible blood clot, HBP. 3 brother(s) , 3 sister(s) . 1 son(s) , 1 daughter(s) . .? Pt has 3 brothers, one with colon cancer and one with rectal cancer. Pts other brother in an MVA. Sister with DM. * Social History: C URRENT TOBACCO USE S moking Status: Patient does NOT smoke. C affeine: yes, frequency:. Home smoke detector use: yes. 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 Alcohol: No. * Medications: T aking Vitamin D3 50 MCG (1999 UT) Capsule 1 cap(s) orally once a day , Taking Aspirin 81 MG Tablet Delayed Release 1 tab(s) orally once a day , Taking Levothyroxine Sodium 25 MCG Tablet 1 tab(s) orally once a day , Taking Solifenacin Succinate 10 MG Tablet 1 tab(s) orally once a day , Taking Metoprolol Succinate ER 50 MG Tablet Extended Release 24 Hour take 1 tablet every day orally once a day , Taking amLODIPine Besylate 5 MG Tablet 1 tab(s) orally once a day , Taking Pravastatin Sodium 20 MG Tablet 1 tab(s) orally once a day (at bedtime) , Not-Taking Ondansetron HCl 4 MG Tablet 1 tab(s) orally every 8 hours , Not-Taking Calcium Carbonate 600 MG Tablet 1 tab orally bid , Not-Taking Meloxicam 15 MG Tablet 1 tab(s) orally once a day , Discontinued Medrol 4 MG Tablet Therapy Pack as directed orally daily , Medication List reviewed and reconciled with the patient * Allergies: N .K.D.A. Objective: * Vitals: W t:254.8, Temp:97.9, BP:134/78, HR:80, O2 Sat:96% on RA, Nurse:ERICA, Ht: 65.5, BMI:41.75. * Examination: G eneral Examination: General Appearance: N AD. H EENT: u nremarkable.?Oral cavity: n o lesions, mucosa moist and WNL, no erythema. N audrey: s upple, no lymphadenopathy. C hest: n ormal shape and expansion. H eart: R SR. L ungs: c lear to auscultation. A bdomen: bowel sounds present, soft and nontender, no organomegaly or masses, no guarding or rigidity. N eurologic Exam: I ntact, gait normal. S kin: n ormal, no rash. P eripheral pulses: n ormal (2+) bilaterally. E xtremities: n o leg edema, ttp along the entire right knee joint, crepitations with movement. Assessment: * Assessment: 1. E ssential hypertension - I10 (Primary) 2 . P ain, joint, knee, right - M25.561 3 . M ixed hyperlipidemia - E78.2 4 . H ypothyroidism (acquired) - E03.9 5 . V itamin D deficiency - E55.9 6 . O verflow incontinence - N39.490 7 . P olyarthralgia - M25.50 8 .?Impaired fasting glucose - R73.01 9 . S creening for thyroid disorder - Z13.29 1 0. O steoporosis screening - Z13.820 1 1. S creening mammogram, encounter for - Z12.31 1 2. S creen for colon cancer - Z12.11 ? Plan: * Treatment: Value Reference Range A /G Ratio 1.6 1.1-2.5 - mg/dL * A lbumin 4.3 3.5-5.3 - g/dL * A lkaline Phosphatase 116 35-121 - IU/L * A LT (SGPT) 22 <5-47 - IU/L * A ST (SGOT) 27 <5-40 - IU/L * B ilirubin, Total 0.6 <0.2-1.2 - mg/dL * B UN 29 H 8-23 - mg/dL * C alcium 9.9 8.6-10.4 - mg/dL * C hloride 98 97-108 - mmol/L * C O2 23 22-32 - mmol/L * C reatinine 1.80 H 0.50-1.00 - mg/dL * G lucose 111 H 65-99 - mg/dL * P otassium 5.0 3.5-5.3 - mmol/L * S odium 134 L 135-145 - mmol/L * P rotein 7.0 6.0-8.3 - g/dL * e GFR by Creatinine 30 L >59 - mL/min/1.73m2 * Linda Lamas 01/03/2024 3: 27:01 PM > see TE ?LAB: CBC Venipuncture (in house) (Collection Date & Time - 12/28/2023)* Value Reference Range w bc 8.8 3.5 - 10 * l ymph 18.3% 15 - 50 * m id 6.0% 2 - 15 * g ran 75.7% 35 - 80 * r bc 5.35 3.5 - 5.5 * h gb 14.7 11.5 - 16.5 * h ct 45.9 35 - 55 * m cv 85.8 75 - 100 * m ch 27.6 25 - 35 * m chc 32.1 31 - 38 * p latlet 301 100 - 400 * Cherry Sadler 12/28/2023 12:39:0 6 PM >Linda Lamas 12/28/2023 1:11:58 PM > 2.?Pain, joint, knee, right?Imaging: X ray : Knee, right3.?Mixed hyperlipidemia?LAB: P-Lipid Panel (Collection Date & Time - 12/28/2023 10:30 AM)?trigs 216, hdl 34* Value Reference Range C holesterol / HDL Ratio 4.41 0.00-4.44 - Ratio * C holesterol 150 <200 - mg/dL * H DL Cholesterol 34 L >39 - mg/dL * L DL Cholesterol (Calculation) 73 <130 - mg/d L * L DL/HDL Ratio 2.1 <3.3 - Ratio * N on-HDL Cholesterol 116 <130 - mg/dL * T riglycerides 216 H <150 - mg/dL * Linda Lamas 01/03/2024 3: 27:01 PM > see TE 4.?Hypothyroidism (acquired)?LAB: P-T4 Free (thyroxine) (Collection Date & Time - 12/28/2023 10:30 AM)? Normal* Value Reference Range T hyroxine Free (free T4) 1.27 0.86-1.76 - ng/d L * Linda Lamas 01/03/2024 3: 27:01 PM > see TE ?LAB: P-TSH (Collection Date & Time - 12/28/2023 10:30 AM)?Normal* Value Reference Range T SH 2.78 0.43-5.25 - mU/L * Linda Lamas 01/03/2024 3: 27:01 PM > see TE 5.?Vitamin D deficiency?LAB: P-Vitamin D 25-Hydroxy (Collection Date & Time - 12/28/2023 10:30 AM)? Normal* Value Reference Range V itamin D 25-Hydroxy 63.6 30.0-100.0 - ng/mL * CydneyLinda Spencer 01/03/2024 3: 27:01 PM > see TE 6.?Impaired fasting glucose?LAB: Glycohemoglobin A1c (in house) (Collection Date & Time - 12/28/2023)? 5.8* Value Reference Range g lycohemoglobin 5.8% 5 - 6.5 % * Marlys Sadlerira 12/28/2023 12:39:4 9 PM > CydneyLinda Spencer 01/03/2024 3:27:01 PM > see TE 7.?Osteoporosis screening?Imaging: DEXA Hip and Spine (Performed Date - 2024)* Linda Laams 12/28/2023 11 :07:59 AM > Needs in March along with mammogram; no auth required; CPT code 77499; faxed to scheduling; 03/14/2024 at 10:00am at Linda Morillo 03/15/2024 8:10:59 AM > Please let patient know this was normal and she will need a repeat in 2 yearsVandana James 03/15/2024 1:41:25 PM > pt informed 8.?Screening mammogram, encounter for?Imaging: Mammogram (Performed Date - 03/14/2024)* Linda Lamas 12/28/2023 11 :07:40 AM > Needs in March along with DEXA; no auth required; faxed to scheduling; 03/14/2024 at 10:00am at YiselLinda Tj 03/14/2024 11:49:04 AM > see TE * Procedure Codes: 9 [address] [place], [address] CAPILLARY BLOOD DRAW, 51587 GLYCATED HEMOGLOBIN TEST, Modifiers: QW , 9[address] CBC WITH AUTO DIFF * Follow Up: v ia phone to report test results * Images: Billing Information: * Visit Code: 61899 Office Visit, Est Pt., Level 4. * Procedure Codes: [address] [place]. [address] CAPILLARY BLOOD DRAW. 70083 GLYCATED HEMOGLOBIN TEST. Modifiers: QW 67382 CBC WITH AUTO DIFF. * Electronic signature of ARIES Reynolds on 05/24/2025 at 10:17 AM EST Sign off status: Pending * Provider: ARIES Jansen Date: 0 12/28/2023 Generated for Marycruz coronado/Trever/Lenoraitting on: 1 07/25/2024 10:17 AM EST History and Physical Notes * HPI (History of Present Illness) Category Sub-Category Detail Notes Category Not es [facility]. Pt is fasting today Knee/Aj knee pain Examination Category Sub-Category Detail Notes Category Not es General Examination HEENT: unremarkable Heart: RSR Lungs: clear to auscultatio n Abdomen: bowel sounds present , soft and nontender, no organomegaly or masses, no guarding or rigidity Extremities: no leg edema, ttp al radha the entire right knee joint, crepitations with movement General Appearance: NAD Skin: normal, no rash Neurologic Exam: Intact, gait normal Neck: supple, no lymphaden opathy Oral cavity: no lesions, mucosa m oist and WNL, no erythema Peripheral pulses: normal (2+) bilatera lly Chest: normal shape and exp ansion
--- OUTSIDE RECORDS SUMMARY | 2024-10-18 04:15 | XMS_ITS ---
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 Name Role Phone Hue Roblero Primary Care Provider Linda Lamas Unavailable [phone] Allergies No Known Allergies Results Component Value Reference Range Notes H-TSH Reviewed date:10/24/2024 11:08:03 AM Interpretation:7.25 Performing Lab: Notes/Report: SHARE RESULTS WITH ARIES YEUNG [id number] TSH 7.25 0.465-4.68 uIU/mL H-CBC Reviewed date:10/24/2024 11:08:03 AM Interpretation:Normal Performing Lab: Notes/Report: SHARE RESULTS WITH ARIES YEUNG [id number] WBC 7.8 4.8-10.8 K/mm3 RBC 5.36 4.20-5.40 M/mm3 HGB 14.9 12.2-16.2 g/dL HCT 46.1 37.0-47.0 % MCV 86.0 81-99 fl MCH 27.8 27.0-31.2 pg MCHC 32.3 31.8-35.4 g/dL RDW-SD 41.7 RDW 13.3 11.5-17.5 % PLT 325 142-424 K/mm3 MPV 10.3 7.4-10.4 fl NE% 72.0 37.0-80.0 % LY% 18.7 10-50 % MO% 6.4 1.7-9.3 % EO% 1.8 0.1-12.0 % BA% 0.8 0.1-2.0 % NRBC% 0 IG% 0.3 NE# 5.6 1.8-7.8 K/mm3 LY# 1.5 0.7-4.5 K/mm3 MO# 0.5 0.1-1.0 K/mm3 EO# 0.1 0.0-0.4 Kmm3 BA# 0.1 0-0.2 K/mm3 NRBC# 0 IG# 0.02 H-Lipid Panel Reviewed date:10/24/2024 11:08:04 AM Interpretation:trigs 216, chol 132, dldl 52.98, vldl 43, hdl 36, chol hdl 3.7 Performing Lab: Notes/Report: SHARE RESULTS WITH ARIES YEUNG [id number] Patient Fasting? Y TRIG 216 30-150 mg/dl CHOL 132 140-200 mg/dl DLDL 52.98 100-129 mg/dL VLDL 43 0-40 mg/dL HDL 36 40-60 mg/dl CHLHDL 3.7 1-3.5 H-CMP Reviewed date:10/24/2024 11:08:04 AM Interpretation:Na 134, BUN 33, Creat 1.70, GFRA 36, eGFR 30, Glu 108 Performing Lab: Notes/Report: SHARE RESULTS WITH ARIES YEUNG [id number] NA 134 136-145 mmol/L K 4.7 3.5-5.1 mmoL/L CL 104 98-107 mmol/L CO2 23 22.0-30.0 mmol/L GAP 11.7 5-15 mEq/L BUN 33 7-17 mg/dl CREATT 1.70 0.52-1.04 mg/dl GFRAA 36 >60 ML/MIN EGFR 30 >60 ml/min GLU 108 74-100 mg/dl CA 9.5 8.4-10.2 mg/dl BILIT 0.7 0.2-1.3 mg/dl AST 33 14-36 U/L ALT 30 12-78 U/L TP 7.1 6.3-8.2 g/dl ALB 4.4 3.5-5.0 g/dl GLOB 2.7 1.3-3.2 g/dL AGRATIO 1.6 1.1-1.8 ALP 105 38-126 U/L H-Glycohemoglobin A1C Reviewed date:10/24/2024 11:08:04 AM Interpretation:5.9% Performing Lab: Notes/Report: HGBA1C 5.9 4.0-6.0 % < 6% Non-Diabetic Level < 7% Controlled Diabetic Level > 8% Poorly Controlled Diabetic Level H-T4 free Reviewed date:10/24/2024 11:08:04 AM Interpretation:Normal Performing Lab: Notes/Report: T4F 1.23 0.78-2.19 ng/dl REASON FOR VISIT AWV Medications Medication SIG (Take, Route, Frequency, Duration) Notes Start Date End Date Status Solifenacin Succinate 10 MG 1 tab(s) ora lly once a day; Duration: 90 days Active amLODIPine Besylate 5 MG 1 tab(s) orally once a day; Duration: 90 days Active Aspirin 81 MG 1 tab(s) orally once a day; Duration: 30 day(s) Active Metoprolol Succinate ER 50 MG take 1 tablet every day orally once a day; Duration: 90 days Active Vitamin D3 50 MCG (2000 UT) 1 cap(s) ora lly once a day Active Pravastatin Sodium 20 MG TAKE 1 TABLET A T BEDTIME; Duration: 90 Active Levothyroxine Sodium 25 MCG 1 tab(s) ora lly once a day; Duration: 90 days Active Immunizations Vaccine Route Administration Date Status Comme nts Prevnar (PCV20) IM Intramuscular 10/18/2024 Administered Problems Problem Type SNOMED Code ICD Code Onset Dates Problem Status W/U Status Risk Notes Problem Morbid obesity (349759893) Morbid obesity (E66.01) Active confirmed Vital Signs Blood pressure systolic 130 mm Hg 10/19/19 25 Blood pressure diastolic 72 mm Hg 025 Heart Rate 74 /min 10/18/2024 Height 65.5 in 10/18/2024 Weight 253.6 lbs 10/18/2024 BMI 41.55 kg/m2 10/18/2024 Encounters Encounter Location Date Provider Diagnosis [facility] [address] [place] [address] BRYAN [id number] 10/18/2024 Linda Lamas Adult general medica l examination Z00.00 ; Essential hypertension I10 ; Mixed hyperlipidemia E78.2 ; Hypothyroidism (acquired) E03.9 ; Vitamin D deficiency E55.9 ; Polyarthralgia M25.50 ; Overflow incontinence N39.490 ; Primary osteoarthritis of right knee M17.11 ; Impaired fasting glucose R73.01 ; Renal insufficiency N28.9 ; Acute pain of right shoulder M25.511 ; Adult BMI 40.0-44.9 kg/sq m Z68.41 ; History of ovarian cancer Z85.43 ; Screening mammogram, encounter for Z12.31 and Morbid obesity E66.01 Assessments Encounter Date Diagnosis (ICD Code) Assessment Notes Treatment Notes Treatment Clinical Notes Section Notes 10/18/2024 Adult general medical examination (ICD-10 - Z00.00) Patient instructed to return to office Annually for Annual Wellness Visits to include annual screenings of Pain assessment, Functional Ability assessment, Cognitive Ability assessment, Fall Risk assessment, Depression screening and Bladder control screening. 10/18/2024 Essential hypertension (ICD-10 - I10) 10/18/2024 Mixed hyperlipidemia (ICD-10 - E78.2) 10/18/2024 Hypothyroidism (acquired) (ICD-10 - E03.9) 10/18/2024 Vitamin D deficiency (ICD-10 - E55.9) 10/18/2024 Polyarthralgia (ICD-10 - M25.50) 10/18/2024 Overflow incontinence (ICD-10 - N39.490) 10/18/2024 Primary osteoarthritis of right knee (ICD-10 - M17.11) 10/18/2024 Impaired fasting glucose (ICD-10 - R73.01) 10/18/2024 Renal insufficiency (ICD-10 - N28.9) 10/18/2024 Acute pain of right shoulder (ICD-10 - M25.511) 10/18/2024 Adult BMI 40.0-44.9 kg/sq m (ICD-10 - Z68.41) 10/18/2024 History of ovarian cancer (ICD-10 - Z85.43) 10/18/2024 Screening mammogram, encounter for (ICD-10 - Z12.31) 10/18/2024 Morbid obesity (ICD-10 - E66.01) Plan Of Treatment Treatment Notes Assessment Notes Adult general medical examination Patien t instructed to return to office Annually for Annual Wellness Visits to include annual screenings of Pain assessment, Functional Ability assessment, Cognitive Ability assessment, Fall Risk assessment, Depression screening and Bladder control screening. Pending Test Test Name Order Date H-VITAMIN D 10/18/2024 H-Microalbumine/Creatinine 10/18/2024 Next Appt Details Follow Up: As directed by , Reason: Provider Name:Linda Talbert y, 07/10/2025 09:30:00 AM, [address], [place], [place], [id number], Progress Notes * Lesa JACK RDOB:1950 (75 yo F)Acc No.[id number]:10/18/2024 Annual Wellness Visit Patient: Lsea WANG Provider: ARIES Jansen :1950 A ge:74 Y S ex:Female Date:10/18/2024 Address:[address] [place] [address], [place], [id number] Pcp:Hue Roblero Subjective: * Chief Complaints: * 1 . AWV. * HPI: H PI: Patient is here today for P atient is here today for a Medicare Annual Wellness Visit. Pt states she is doing good and denies any new concerns. Pt is fasting.? * ROS: D ERMATOLOGY: no R godfrey. n o H charley. G ASTROENTEROLOGY: no N ausea. n o V omiting. n o D iarrhea.? O PTHALMOLOGY: Negative for d enies vision issues. U ROLOGY: no D ifficulty urinating. n o B lood in urine. * Medical History: H ypertension, Ovarian Cancer 1994. * Surgical History: T otal Hysterectomy 1994, LT knee Replacement, [facility] 12/23/2014, Cholecystectomy- Dr Cardenas 10/06/2020. * Hospitalization/Major Diagno stic Procedure: A cute Pancreatitis- [facility] 09/17/2020. * Family History: F ather: 49 yrs, [place], aneurysm, HBP. M other: 60 yrs, complications [...] frequency:. Home smoke detector use: yes. 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 Alcohol: No. * Medications: T [...] , Taking Pravastatin Sodium 20 MG Tablet TAKE 1 TABLET AT BEDTIME , Medication List reviewed and reconciled with the patient * Allergies: N .K.D.A. Objective: * Vitals: W t: 253.6, Temp: 97.6, BP: 130/72, HR: 74, Nurse: KENNETH, Ht: 65.5, BMI:41.55. * Examination: G eneral Examination: General Appearance: [...] (2+) bilaterally. E xtremities: n o leg edema. * Physical Examination: G ENERAL: Pain Assessment: P ain level: 5, on a scale of 0-10 (with 10 being extreme pain). F unctional Status Assessment: P atient response to question of how often physical health interferes with daily activities: Frequently. Able to perform ADLs-including meal preparation, grocery shopping, housework, laundry, taking medications or handling finances. Cognitive Status: alert and oriented. Ambulation Status: Fully ambulatory . F all Risk Assessment: I ndependant in ambulation, adequate lighting in home. Patient has NOT fallen or had trouble walking within the past 12 months. D epression Screening: D enies depressed mood or anxiety. Describes emotional health as: calm/peaceful. B ladder Control Screening: S mall problem. Assessment: * Assessment: 1. A dult general medical examination - Z00.00 (Primary) 2 . E ssential hypertension - I10 3 . M ixed hyperlipidemia - E78.2 4 . H ypothyroidism (acquired) - E03.9 5 . V itamin D deficiency - E55.9 6 . P olyarthralgia - M25.50 7 . O verflow incontinence - N39.490 ?8. P rimary osteoarthritis of right knee - M17.11 9 . I mpaired fasting glucose - R73.01 1 0. R enal insufficiency - N28.9 1 1. A cute pain of right shoulder - M25.511 1 2. A dult BMI 40.0-44.9 kg/sq m - Z68.41? 13. H istory of ovarian cancer - Z85.43 1 4. S creening mammogram, encounter for - Z12.31 1 5. M orbid obesity - E66.01 Plan: * Treatment: 2. E ssential hypertension L AB: H-Microalbumine/Creatinine L AB: H-CBC (Collection Date & Time - 10/18/2024 10:13 AM) N ormal Value Reference Range W BC 7.8 4.8-10.8 - K/mm3 * R BC 5.36 4.20-5.40 - M/mm3 * H GB 14.9 12.2-16.2 - g/dL * H CT 46.1 37.0-47.0 - % * M CV 86.0 81-99 - fl * M CH 27.8 27.0-31.2 - pg * M CHC 32.3 31.8-35.4 - g/dL * R DW 13.3 11.5-17.5 - % * P LT 325 142-424 - K/mm3 * M PV 10.3 7.4-10.4 - fl * N E% 72.0 37.0-80.0 - % * L Y% 18.7 10-50 - % * M O% 6.4 1.7-9.3 - % * E O% 1.8 0.1-12.0 - % * B A% 0.8 0.1-2.0 - % * N E# 5.6 1.8-7.8 - K/mm3 * L Y# 1.5 0.7-4.5 - K/mm3 * M O# 0.5 0.1-1.0 - K/mm3 * E O# 0.1 0.0-0.4 - Kmm3 * B A# 0.1 0-0.2 - K/mm3 * R DW-SD 41.7 - fL * N RBC% 0 - % * N RBC# 0 - 10 3/uL * I G% 0.3 - % * I G# 0.02 - 10 3uL * Vandana James 10/24/2024 11: 07:55 AM > See phone encounter ?LAB: H-CMP (Collection Date & Time - 10/18/2024 10:13 AM)?Na 134, BUN 33, Creat 1.70, GFRA 36, eGFR 30, Glu 108* Value Reference Range N A 134 L 136-145 - mmol/L * K 4.7 3.5-5.1 - mmoL/L * C L 104 98-107 - mmol/L * C O2 23 22.0-30.0 - mmol/L * G AP 11.7 5-15 - mEq/L * B UN 33 H 7-17 - mg/dl * C REATT 1.70 H 0.52-1.04 - mg/dl * G FRAA 36 L >60 - ML/MIN * E GFR 30 L >60 - ml/min * G PIERCE 108 H 74-100 - mg/dl * C A 9.5 8.4-10.2 - mg/dl * B ILIT 0.7 0.2-1.3 - mg/dl * A ST 33 14-36 - U/L * A LT 30 12-78 - U/L * T P 7.1 6.3-8.2 - g/dl * A LB 4.4 3.5-5.0 - g/dl * G LOB 2.7 1.3-3.2 - g/dL * A GRATIO 1.6 1.1-1.8 - * A LP 105 38-126 - U/L * Vandana James 10/24/2024 11: 07:55 AM > See phone encounter 3.?Mixed hyperlipidemia?LAB: H-Lipid Panel (Collection Date & Time - 10/18/2024 10:13 AM)?trigs 216, chol 132, dldl 52.98, vldl 43, hdl 36, chol hdl 3.7* Value Reference Range T RIG 216 H 30-150 - mg/dl * C HOL 132 L 140-200 - mg/dl * D LDL 52.98 L 100-129 - mg/dL * V LDL 43 H 0-40 - mg/dL * H DL 36 L 40-60 - mg/dl * C HLHDL 3.7 H 1-3.5 - * Vandana James 10/24/2024 11: 07:55 AM > See phone encounter 4.?Hypothyroidism (acquired)?LAB: H-TSH (Collection Date & Time - 10/18/2024 10:13 AM)?7.25* Value Reference Range T SH 7.25 H 0.465-4.68 - uIU/mL * Vandana James 10/24/2024 11: 07:55 AM > See phone encounter ?LAB: H-T4 free (Collection Date & Time - 10/18/2024 10:13 AM)?Normal* Value Reference Range T 4F 1.23 0.78-2.19 - ng/dl * Vandana James 10/24/2024 11: 07:55 AM > See phone encounter 5.?Vitamin D deficiency?LAB: H-VITAMIN D6.?Impaired fasting glucose?LAB: H-Glycohemoglobin A1C (Collection Date & Time - 10/18/2024 10:13 AM)? 5.9%* Value Reference Range H GBA1C 5.9 4.0-6.0 - % * Vandana James 10/24/2024 11: 07:55 AM > See phone encounter * Immunizations: Prevnar (PCV20) : 0.5 mL (Route: Intramuscular) given by Pam Diego on Right Deltoid * Procedure Codes: G 0439 ANNUAL WELLNESS VST; PPS SUBSQT VST, G2211 Complex e/m visit add on, 1090F PRES/ABSN URINE INCON ASSESS, 3288F FALL RISK ASSESSMENT DOCD, 1170F FXNL STATUS ASSESSED, 1159F MED LIST DOCD IN RCRD, 1003F LEVEL OF ACTIVITY ASSESS, 3017F COLORECTAL CA SCREEN DOC REV, 1036F TOBACCO NON-USER, 1125F AMNT PAIN NOTED PAIN PRSNT, 3044F HG A1C LEVEL LT 7.0%, 4040F PNEUMOC IMM ORDER/ADMIN, 3075F SYST BP GE 130 - 139MM HG, 3078F DIAST BP < 80 MM HG * Preventive Medicine: Counseling: E motional health: P atient encouraged to try connecting with family or friends to boost mood. B ladder control: M ethods of controlling or managing leakage of urine discussed. E xercise: P atient advised to start, increase or maintain level of exercise/physical activity. I njury prevention: F all prevention discussed. Discussed need for cane/walker. Potential trip hazards discussed. Immunizations: P neumococcal r ecommended. I nfluenza u p to date. Screening / Special Tests: M ammogram R ecent history: 03/14/2024, negative.?Colonoscopy R ecent history: 12/09/2016, polyps, diverticulosis, hemorrhoids, repeat 5 years. Order faxed 08/20/2024. B one mineral Density R ecent history: 03/14/2024, normal. * Follow Up: A s directed by * Images: Billing Information: * Visit Code: 10422 Office Visit, Est Pt., Level 3. Modifiers: 25 * Procedure Codes: G0439 ANNUAL WELLNESS VST; PPS SUBSQT VST. G2211 Complex e/m visit add on. 1090F PRES/ABSN URINE INCON ASSESS. 3288F FALL RISK ASSESSMENT DOCD. 1170F FXNL STATUS ASSESSED. 1159F MED LIST DOCD IN RCRD. 1003F LEVEL OF ACTIVITY ASSESS. 3017F COLORECTAL CA SCREEN DOC REV. 1036F TOBACCO NON-USER. 1125F AMNT PAIN NOTED PAIN PRSNT. 3044F HG A1C LEVEL LT 7.0%. 4040F PNEUMOC IMM ORDER/ADMIN. 3075F SYST BP GE 130 - 139MM HG. 3078F DIAST BP < 80 MM HG. * Electronic signature of ARIES Reynolds on 05/24/2025 at 10:18 AM EST Sign off status: Pending * Provider: ARIES Jansen Date: 0 10/18/2024 Generated for Printi ng/Faxing/eTransmitting on: 1 07/25/2024 10:18 AM EST History and Physical Notes * HPI (History of Present Illness) Category Sub-Category Detail Notes Category Not es HPI Patient is here today for Patien t is here today for a Medicare Annual Wellness Visit. Pt states she is doing good and denies any new concerns. Pt is fasting Physical Examination Category Sub-Category Detail Notes Section Note s GENERAL Pain Assessment: Pain level: 5, on a scale of 0-10 (with 10 being extreme pain) Functional Status Assessment: Patient re sponse to question of how often physical health interferes with daily activities: Frequently. Able to perform ADLs-including meal preparation, grocery shopping, housework, laundry, taking medications or handling finances.Cognitive Status: alert and oriented.Ambulation Status: Fully ambulatory Fall Risk Assessment: Independant in amb ulation, adequate lighting in home. Patient has NOT fallen or had trouble walking within the past 12 months Depression Screening: Denies depressed m ood or anxiety. Describes emotional health as: calm/peaceful Bladder Control Screening: Small problem Examination Category Sub-Category Detail Notes Category Not es General Examination HEENT: unremarkable Heart: RSR Lungs: clear to auscultatio n Abdomen: bowel sounds present , soft and nontender, no organomegaly or masses, no guarding or rigidity Extremities: no leg edema General Appearance: NAD Skin: normal, no rash Neurologic Exam: Intact, gait normal Neck: supple, no lymphaden opathy Oral cavity: no lesions, mucosa m oist and WNL, no erythema Peripheral pulses: normal (2+) bilatera lly Chest: normal shape and exp ansion
--- OUTSIDE RECORDS SUMMARY | 2025-01-07 04:05 | XMS_ITS ---
Author Organization [facility] Address [address] [facility] [address] [place] [id number] Care Team Providers Care Employee Benefits Administrator Name Role Phone Hue Roblero Primary Care Provider [phone] Linda Lamas Unavailable [phone] Results Component Value Reference Range Notes P-T4 Free (thyroxine) Reviewed date:01/15/2025 08:16:10 AM Interpretation:Normal Performing Lab: Notes/Report: Test performed by [facility] [address] [place] [address] , [facility] [place] [address] Raf Parsons MD, Wireline Field Operator CLIA: [id number] Thyroxine Free (free T4) 1.32 0.86-1.76 ng/dL P-TSH Reviewed date:01/15/2025 08:16:02 AM Interpretation:Normal Performing Lab: Notes/Report: Test performed by [facility] [address] [place] [address] , [place] [address] Raf Parsons MD, Wireline Field Operator CLIA: [id number] TSH 3.33 0.43-5.25 mU/L REASON FOR VISIT blood work Medications Medication SIG (Take, Route, Frequency, Duration) Notes Start Date End Date Status Vitamin D3 50 MCG (1999) 1 cap(s) ora lly once a day Active Metoprolol Succinate ER 50 MG TAKE 1 TABLET EVERY DAY; Duration: 90 Active Pravastatin Sodium 20 MG TAKE 1 TABLET A T BEDTIME; Duration: 90 Active Aspirin 81 MG 1 tab(s) orally once a day; Duration: 30 day(s) Active Levothyroxine Sodium 50 MCG 1 tablet in the morning on an empty stomach Orally Once a day; Duration: 90 days 10/31/2024 Active Solifenacin Succinate 10 MG TAKE 1 TABLE T EVERY DAY; Duration: 90 Active amLODIPine Besylate 5 MG TAKE 1 TABLET E VERY DAY; Duration: 90 Active Encounters Encounter Location Date Provider Diagnosis Gavin [address] [facility] 36 [facility] [address] [place] [id number] 01/07/2025 Linda Lamas Hypothyroidism (acqu ired) E03.9 Assessments Encounter Date Diagnosis (ICD Code) Assessment Notes Treatment Notes Treatment Clinical Notes Section Notes 01/07/2025 Hypothyroidism (acquired) (ICD-10 - E03.9) Plan Of Treatment Next Appt Details Provider Name:Linda Talbert y, 07/10/2025 09:30:00 AM, [address] [facility] 36 [facility], [address], [place], [phone], Progress Notes * Lesa JACK RDOB:1950 (75 yo F)Acc No.[id number]:01/07/2025 Patient: Tj Lesa SHEN Provider: ARIES Jansen :1950 A ge:74 Y S ex:Female Date:01/07/2025 Address:[address] [place] [id number] Pcp:Hue Roblero Subjective: * Chief Complaints: * 1 . Blood work. * Medical History: * Medications: T aking Vitamin D3 50 MCG (1999) Capsule 1 cap(s) orally once a day , Taking Aspirin 81 MG Tablet Delayed Release 1 tab(s) orally once a day , Taking Pravastatin Sodium 20 MG Tablet TAKE 1 TABLET AT BEDTIME , Taking Levothyroxine Sodium 50 MCG Tablet 1 tablet in the morning on an empty stomach Orally Once a day , Taking amLODIPine Besylate 5 MG Tablet TAKE 1 TABLET EVERY DAY , Taking Solifenacin Succinate 10 MG Tablet TAKE 1 TABLET EVERY DAY , Taking Metoprolol Succinate ER 50 MG Tablet Extended Release 24 Hour TAKE 1 TABLET EVERY DAY , Medication List reviewed and reconciled with the patient Objective: * Vitals: Assessment: * Assessment: 1. H ypothyroidism (acquired) - E03.9 (Primary) Plan: * Treatment: Value Reference Range T hyroxine Free (free T4) 1.32 0.86-1.76 - ng/d L * Linda Lamas 01/15/2025 08 :16:07 AM EDT >see TE ?LAB: P-TSH (Collection Date & Time - 01/07/2025 08:31 AM)?Normal* Value Reference Range T SH 3.33 0.43-5.25 - mU/L * Linda Lamas 01/15/2025 08 :15:59 AM EDT >see TE * Images: Billing Information: * Visit Code: * Procedure Codes: * Electronic signature of ARIES Reynolds on 05/24/2025 at 10:18 AM EST Sign off status: Pending * Provider: ARIES Jansen Date: 0 01/07/2025 Generated for Marycruz coronado/Trever/eTransmitting on: 1 07/25/2024 10:18 AM EST
--- OUTSIDE RECORDS SUMMARY | 2025-03-30 00:25 | XMS_ITS | Continuity of Care Document ---
Author Organization [facility] Phone Care Team Providers Care Steam Train Driver Name Role Phone ADDIS HILL Unavailable ADDIS HILL Admitting ADDIS HILL Primary Attending ADDIS HILL Primary Care RESULTS Patient: AYLIN FELICIANO Date of : 1950 LABORATORY RESULTS Information is not available LABORATORY NARRATIVE RESULTS Information is not available RADIOLOGY RESULTS ORDER 100: LUIS E SCREEN MAMMO W CAD BILAT (LOINC: 74139-2) ORDER DATE: March 27, 2025 1:36:00 PM [facility] PERFORMING LAB: [address] [id number] Final Result Date: March 122024 6:50:[address] [place] [address] Name: JOSH VIERA Exam Date: 03/27/2025 : 1950 Age 75 years Gender: F Physician: ADDIS HILL Facility: [facility] Facility HSV: Outpatient Exam: LUIS E SCREEN MAMMO W CAD BILAT Exam: 3-D screening mammography including tomosynthesis and CAD (Computer Assisted Detection). Clinical indication: Asymptomatic screening exam Comparison: Exams to 2021 TECHNIQUE: Routine bilateral 2D screening mammogram with CC and MLO views obtained. 3-D tomosynthesis and Computer assisted detection were utilized for this exam. BREAST DENSITY: The breasts are heterogeneously dense, which may obscure small masses FINDINGS: No suspicious mass, architectural distortion, or suspicious calcifications are present. IMPRESSION: No evidence of malignancy in either breast Recommendation: Annual screening mammography recommended in one year The results of this report will be communicated to the patient by letter in layman's terms. ACR BI-RADS: BI-RADS assessment category 1: Negative mammogram Mammography does not detect approximately 10-15% of breast cancers. A normal mammogram does not exclude breast cancer in a patient with palpable mass or abnormal findings on physical examination. These patients may need biopsies and when clinically indicated a biopsy should not be postponed because of a normal mammogram. If the patient has breast surgery or biopsy, FDA/SA Regulatory Guidelines mandate that this facility receive pathologic results for follow-up correlation. Electronically signed by: Devonte Yuan MD 03/27/2025 02:54 PM EDT RP Dictated By: Devonte Yuan Transcribed By: Transcribed On: 03/27/2025 2:50 PM Electronically signed by: Devonte Yuan 03/27/2025 Thank you for referring JOSH VIERA to [facility]. Legally authenticated by TOM ATKINS MD 2025-03-27 14:50:34 PATHOLOGY NARRATIVE RESULTS Information is not available MICROBIOLOGY RESULTS No Micro Labs/Results Exist for Patient BLOOD ADMIN RESULTS Information is not available MEDICATIONS HOME MEDICATIONS Status RXNORM NDC Medication Dose Route Frequency Dates Comments Reported By Updated By Drug Treatment Unknown DISCHARGE MEDICATIONS Status RXNORM NDC Medication Dose Route Frequency Dates Dis pense Data Comments Physician Updated By No Discharge Medication Info rmation Available INPATIENT MEDICATIONS Status RXNORM NDC Medication Dose Route Frequency Rat e Quantity Dates Indication Dispense Data Comments Physician Updated By No Inpatient Medication Info rmation Available SOCIAL HISTORY SOCIAL HISTORY - Smoking Status SNOMED-CT Social History Element Description Effective Dates Offered Cessation Comment Updated By [id number] Smoking Status Unknown If Ever Smoked SOCIAL HISTORY - Gender Sex: Female SOCIAL HISTORY - Status : status i nformation is not available Intention in Next Year: intention information is not available SOCIAL HISTORY - Assessments Code System Description Status Date Value of Assessment Updated By Comment Assessment Information is no t available SOCIAL HISTORY - [place] Affiliation [place] information is not av ailable SOCIAL HISTORY - Legal Sex Legal Sex information is not available SOCIAL HISTORY - Sexual Behavior Sexual Orientation Gender Identity SNOMED-CT Description SNO MED -CT Description Activity Level No of Partners Partner Type UpdatedBy Information is not available SOCIAL HISTORY - Occupation Occupation information is no t available HEALTH CONCERNS Problems Concern Status Health Concern problem infor mation not available. Smoking Status Status Years Used Consumed packs p er day Health Concern smoking histo ry information not available. Family History Concern Status Health Concern family histor y information not available. ENCOUNTERS ENCOUNTER INFORMATION Reason for Visit Not Specified Admission March 27, 2025 1:27:[address] [phone] Discharge March 28, 2025 1:27:00 AM [facility] DISCHARGED TO HOME OR SELF CARE ENCOUNTER DIAGNOSES Notes information is not adolfo ilable. Code System Diagnosis Onset Date Diagnosis information is not available. ABSTRACT DIAGNOSES Code System Diagnosis Updated By Abatement Date Z12.31 ICD10 ENCOUNTER FOR SC REENING MAMMOGRAM FOR MALIGNANT NEOPLASM OF BREAST [id number] on March 30, 2025 5:24:58 AM [facility] Z12.31 ICD10 ENCOUNTER FOR SC REENING MAMMOGRAM FOR MALIGNANT NEOPLASM OF BREAST [id number] on March 30, 2025 5:24:58 AM [facility] CARE TEAM Care Steam Train Driver Role ADDIS HILL Referring ADDIS HILL Admitting ADDIS HILL Primary Attending ADDIS HILL Primary Care CARE TEAM CARE laboratory miller Role on Team Location Telecom Status Start Date End Miah e Updated By LIZ ACEVES PCP normal March 17, 2025 2:12:21 PM [facility] March 28, 2025 1:27:00 AM [facility] [id number] on March 17, 2025 2:12:21 PM [facility] LIZ ACEVES Referring normal March 17, 2025 2:12:21 PM [facility] March 28, 2025 1:27:00 AM [facility] [id number] on March 17, 2025 2:12:21 PM [facility] LIZ ACEVES Attending normal March 17, 2025 2:12:21 PM [facility] March 28, 2025 1:27:00 AM [facility] [id number] on March 17, 2025 2:12:21 PM [facility] LIZ ACEVES Admitting normal March 17, 2025 2:12:21 PM [facility] March 28, 2025 1:27:00 AM [facility] [id number] on March 17, 2025 2:12:21 PM [facility]
--- OUTSIDE RECORDS SUMMARY | 2025-05-24 10:17 | XMS_ITS | Patient Health Record ---
Author Organization [facility] Address [facility] [address] [place] [phone] Care Team Providers Care Messenger Floorperson Name Role Phone Hue Roblero Primary Care Provider [phone] Linda Lamas Unavailable [phone] Allergies No Known Allergies Results Component Value Reference Range Notes colonoscopy Reviewed date:12/10/2024 03:35:34 PM Interpretation: Performing Lab: Notes/Report: H-TSH Reviewed date:10/24/2024 11:08:03 AM Interpretation:7.25 Performing Lab: Notes/Report: SHARE RESULTS WITH ARIES YEUNG [id number] TSH 7.25 0.465-4.68 uIU/mL H-CBC Reviewed date:10/24/2024 11:08:03 AM Interpretation:Normal Performing Lab: Notes/Report: SHARE RESULTS WITH ARIES YEUNG [id number] WBC 7.8 4.8-10.8 K/mm3 RBC 5.36 4.20-5.40 [...] 36, chol hdl 3.7 Performing Lab: Notes/Report: Patient Fasting? Y SHARE RESULTS WITH ARIES YEUNG [id number] TRIG 216 30-150 mg/dl CHOL 132 140-200 mg/dl DLDL 52.98 100-129 mg/dL VLDL 43 0-40 mg/dL HDL 36 40-60 mg/dl CHLHDL 3.7 1-3.5 H-CMP Reviewed date:10/24/2024 11:08:04 AM Interpretation:Na 134, BUN 33, Creat 1.70, GFRA 36, eGFR 30, Glu 108 Performing Lab: Notes/Report: SHARE RESULTS WITH ARIES YEUNG [id number] NA 134 136-145 mmol/L K 4.7 3.5-5.1 [...] Performing Lab: Notes/Report: T4F 1.23 0.78-2.19 ng/dl P-T4 Free (thyroxine) Reviewed date:01/15/2025 08:16:10 AM Interpretation:Normal Performing Lab: Notes/Report: CLIA: [id number] Raf Parsons MD, Trouble Clerk [address] [place] [address] [facility] [place] [address] Test performed by [employer] [facility] Thyroxine Free (free T4) 1.32 0.86-1.76 ng/dL P-TSH Reviewed date:01/15/2025 08:16:02 AM Interpretation:Normal Performing Lab: Notes/Report: Test performed by [facility] [facility] [address] [place] [address] [facility] [place] [address] Raf Parsons MD, Trouble Clerk CLIA: [id number] TSH 3.33 0.43-5.25 mU/L Reason For Referral No Information Medications Medication SIG (Take, Route, Frequency, Duration) Notes Start Date End Date Status Pravastatin Sodium 20 MG 1 tablet Orally Once a day; Duration: 90 days Active amLODIPine Besylate 5 MG 1 tablet Orally Once a day; Duration: 90 days Active Vitamin D3 50 MCG (1999 [place]) 1 cap(s) ora lly once a day Active Levothyroxine Sodium 50 MCG 1 tablet in the morning on an empty stomach Orally Once a day; Duration: 90 days Active Metoprolol Succinate ER 50 MG 1 tablet Orally Once a day; Duration: 90 days Active Aspirin 81 MG 1 tab(s) orally once a day; Duration: 30 day(s) Active Solifenacin Succinate 10 MG 1 tablet Ora lly Once a day; Duration: 90 days Active Immunizations Vaccine Route Administration Date Status Comme nts COVID 19 Moderna Unknown 10/31/2020 Administered COVID 19 Moderna Unknown 11/28/2020 Administered COVID 19 Pfizer Unknown 06/22/2021 Administered Fluzone High Dose (65yr and older) IM Intramuscular 03/09/2022 Administered Fluzone High Dose (65yr and older) IM Intramuscular 06/14/2023 Administered PNEUMOVAX 23 VACCINE IM Intramuscular 12/03/2020 Administered Given by Kirby Joseph Prevnar (PCV13) IM Intramuscular 11/29/2019 Administered Prevnar (PCV20) IM Intramuscular 10/18/2024 Administered Problems Problem Type SNOMED Code ICD Code Onset Dates Problem Status W/U Status Risk Notes Problem Hypothyroidism (07327529) Hypothyroidism (acquired) (E03.9) Active confirmed Problem Vitamin D deficiency (60959352) Vitamin D deficiency (E55.9) Active confirmed Problem Essential hypertension (45858560) Essential hypertension (I10) Active confirmed Problem Abnormal mammogram (176146353) Abnormal mammogram (R92.8) Active confirmed Problem Morbid obesity (099243797) Morbid obesity (E66.01) Active confirmed Problem Abnormal findings on diagnostic imaging of breast (628914779) Abnormal mammogram of both breasts (R92.8) Active confirmed Problem Mixed hyperlipidemia (030977439) Mixed hyperlipidemia (E78.2) Active confirmed Problem Overflow incontinence of urine (592814678) Overflow incontinence (N39.490) Active confirmed Problem Osteoarthritis of knee (028387602) Primary osteoarthritis of right knee (M17.11) Active confirmed Problem Body mass index 40+ - severely obese (003742819) Adult BMI 40.0-44.9 kg/sq m (Z68.41) Active confirmed Problem Osteopenia (101626754) Osteopenia of spine (M85.88) Active confirmed Problem History of malignant neoplasm of ovary (222662872) History of ovarian cancer (Z85.43) Active confirmed Problem Arthritis of knee (264472454) Arthritis of knee (M17.10) Active confirmed Vital Signs Heart Rate 74 /min 10/18/2024 Blood pressure diastolic 72 mm Hg 10/18/2024 Height 65.5 in 10/18/2024 Blood pressure systolic 130 mm Hg 10/18/2024 Weight 253.6 lbs 10/18/2024 BMI 41.55 kg/m2 10/18/2024 Encounters Encounter Location Date Provider Diagnosis [facility] [address] [place] [id number] 10/18/2024 Linda Lamas Adult general medica l [...] encounter for Z12.31 and Morbid obesity E66.01 [facility] [address] [place] [id number] 01/07/2025 Linda Lamas Hypothyroidism (acqu ired) E03.9 [facility] [address] [place] [id number] 10/24/2024 Linda Lamas [facility] [address] [place] [phone] 01/15/2025 Linda Lamas Assessments Encounter Date Diagnosis (ICD Code) Assessment Notes Treatment Notes Treatment Clinical Notes Section Notes 10/18/2024 Essential hypertension (ICD-10 - I10) 10/18/2024 Adult general medical examination (ICD-10 - Z00.00) Patient instructed to return to office Annually for Annual Wellness Visits to include annual screenings of Pain assessment, Functional Ability assessment, Cognitive Ability assessment, Fall Risk assessment, Depression screening and Bladder control screening. 01/07/2025 Hypothyroidism (acquired) (ICD-10 - E03.9) 10/18/2024 Mixed hyperlipidemia (ICD-10 - E78.2) 10/18/2024 [...] obesity (ICD-10 - E66.01) Plan Of Treatment Pending Test Test Name Order Date X ray : Knee, right 12/28/2023 H-VITAMIN D 10/18/2024 H-Microalbumine/Creatinine 10/18/2024 Next Appt Details Provider Name:Linda queen, 07/10/2025 09:30:00 AM, [address] [facility], [address], [place], [place], [phone], Insurance Providers Payer Name Payer Address Payer Phone Subscriber Number Group Number Insured Name Patient Relationship to Insured Coverage Start Date Coverage End Date [employer] (MEDICAR E) [address] [address] [place] [address] [phone] [id number] Lesa Jack Self - patient is the insured Medical (General) History Medical History History ICD Code Hypertension Ovarian Cancer 1994 Surgical History Surgery Date(Month/Year) Total Hysterectomy 1994 LT knee Replacement, [facility] 12/10 Cholecystectomy- Dr Cardenas 10/06/2020 Hospitalization History Reason Date(Month/Year) Acute Pancreatitis- [facility] 09/17/2020
--- OUTSIDE RECORDS SUMMARY | 2025-05-24 10:18 | XMS_ITS | Clinical Summary ---
Author Organization [facility] Address [address] [place] [phone] Care Team Providers Care Parliamentary Counsel Name Role Phone Hesham Roblero MD Primary Care Provider Social History Tobacco Use Types Packs/Day Years Used Date Smoking Tobacco: Never Assessed Abuse Screen Answer Date Recorded Unsafe at Home or Work/School Not on file Feels Threatened by Someone? Not on file 02/2023 Does Anyone Keep You from Co ntacting Others or Doint Things Outside the Home? Not on file 03/20/2023 Physical Sign of Abuse Present Not on file 1 Housing Stability Answer Date Recorded Current Living Arrangements Not on file 02/2023 Potentially Unsafe Housing Conditions Not on lida e 03/20/2023 Family and Community Support Answer Miah e Recorded Help with Day-to-Day Activities Not on file 03/20/2023 Lonely or Isolated Not on file 03/20/2023 Employment Answer Date Recorded Do you want help finding or keeping work or a akilah b? Not on file 03/20/2023 Disabilities Answer Date Recorded Concentrating, Remembering, or Making Decisions Difficulty Not on file 03/20/2023 Doing Errands Independently Difficulty Not on fi le 03/20/2023 Education Answer Date Recorded Help with school or training? Not on file Preferred Language Not on file 03/20/2023 Comments Unknown Sex and Gender Information Value Date Recorded Sex Assigned at Not on file Legal Sex Female 10:17 AM EDT Gender Identity Not on file Sexual Orientation Not on file Plan of Treatment Health Maintenance Due Date Last Done Comments ANNUAL PHYSICAL 1950 DXA SCAN 1950 HEPATITIS C SCREENING 1950 TDAP/TD VACCINES (1 - Tdap) 1971 MAMMOGRAM 1992 COLOGUARD 1997 COLON CANCER SCREENING 5 YEAR SIGMOIDOSCOPY 1997 COLONOSCOPY [address] CANCER SCREENING 1997 CT COLONOGRAPHY 1997 FECAL OCCULT BLOOD TEST 1997 FIT Testing (1 year) 1997 Pneumococcal Vaccine 50+ (1 of 1 - PCV) 2002 ZOSTER VACCINE (1 of 2) 2002 INFLUENZA VACCINE 01/10/2025 COVID-19 Vaccine ( - season) 2025 Care Teams Parliamentary Counsel Relationship Specialty Start Date End Date Hesham Roblero MD [address] [facility] [address] [facility] [address] [place] [address] PCP - General 01/22/15
--- OUTSIDE RECORDS SUMMARY | 2025-05-24 10:19 | XMS_ITS | Clinical Summary ---
Author Organization Healthcare Address [address] [place] [address] Care Team Providers Care Commercial Property Administrator Name Role Phone Linda Lamas Primary Care Provider [phone] Allergies No known active allergies Medications amLODIPine (Norvasc) 5 MG tablet 10/18/2022 Active levothyroxine (Synthroid, Levoxyl) 25 MCG tablet 08/30/2022 Active metoprolol succinate XL (Toprol-XL) 50 MG 24 hr tablet 10/25/2022 Act clari pravastatin (Pravachol) 20 MG tablet 10/18/2022 Active solifenacin (VESIcare) 10 MG tablet 10/25/2022 Active aspirin 81 MG EC tablet Take 1 tablet (81 mg) by mouth 1 (one) time each day. Active cholecalciferol (Vitamin D-3) 5,000 Units tablet Take 1 tablet (5,000 Units) by mouth. Active polycarbophil (Fibercon) 625 MG tablet Take 1 tablet (625 mg) by mouth 1 (one) time each day. Active empagliflozin (Jardiance) 10 MGIndications:CK D stage 3b, GFR 30-44 ml/min (CMS/HCC),Persis tent proteinuria Take 1 tablet by mouth daily. 90 tablet 3 10/25/2024 Active Active Problems Problem Noted Date Diagnosed Date Persistent proteinuria 10/25/2024 CKD stage 3b, GFR 30-44 ml/min 10/25/2024 Anemia in stage 3a chronic kidney disease 2023 Chronic kidney disease-mineral and bone disorder (CKD-MBD) 04/12/2024 Hyponatremia 04/12/2024 Hypertensive chronic kidney disease with stage 1 through stage 4 chronic kidney disease, or unspecified chronic kidney disease 04/12/2024 Renal insufficiency 04/05/2024 Hypertension 04/05/2024 Hypothyroidism (acquired) 04/05/2024 Hyperlipemia 04/05/2024 Obesity, Class III, BMI 40-49.9 (morbid obesity) 08/17/2023 Immunizations Immunization Administration Dates Next Due Influenza, injectable, quadrivalent, preservativ e free 06/22/2021 Pneumococcal Conjugate PCV 13 11/29/2019 Pneumococcal Polysaccharide PPV23 12/03/2020 Social History Tobacco Use Types Packs/Day Years Used Date Smoking Tobacco: Former Cigarettes 0 Q uit: 04/14/1980 Smokeless Tobacco: Never Tobacco Cessation:Counseling Given: Not Answered Alcohol Use Standard Drinks/Week Comments Never 0 (1 standard drink = 0.6 oz pur e alcohol) Comments No Sex and Gender Information Value Date Recorded Sex Assigned at Not on file Legal Sex Female 6:56 PM EDT Gender Identity Not on file Sexual Orientation Not on file Last Filed Vital Signs Vital Sign Reading Time Taken Comments Blood Pressure 169/77 10/25/2024 12:25 PM EDT retake right arm- 160/68 Pulse 66 10/25/2024 12:25 PM EDT Temperature 36.2 C (97.2 F) 04/12/2024 12:15 PM EDT Respiratory Rate 20 10/25/2024 12:2 5 PM EDT Oxygen Saturation 99% 10/25/2024 12: 25 PM EDT Inhaled Oxygen Concentration - - Weight 116 kg (255 lb) 10/25/2024 12:25 PM EDT Height 165.1 cm (5' 5 ) 10/25/2024 12:2 5 PM EDT Body Mass Index 42.43 10/25/2024 12:25 PM EDT Plan of Treatment Upcoming Encounters Date Type Department Care Team (Late st Contact Info) Description 05/30/2025 1:40 PM EST Office Visit [facility] [address] [place] [id number] J Carlos Farmer MD [address] [place] [phone] Health Maintenance Due Date Last Done Comments [facility]-Bone Density Scan 1952 [facility]-Depression Screening 1952 [facility]-Hepatitis C Screening 1950 [facility]-Medicare Annual Wellness (AWV) 1950 [facility]-/Child/Adol SDOH Screenings 1952 [facility]- SDOH Screenings 1970 [facility]-Adult SDOH Screenings 1970 [facility]-DTaP,Tdap,and Td Vaccines (1 - Tdap) 1971 CT Colonography 1997 Colonoscopy 1997 FIT-DNA 1997 FIT 1997 FOBT 1997 Sigmoidoscopy 1997 [facility]-Colorectal Cancer Screening 1997 [facility]-Breast Cancer Screening 2002 [facility]-RSV Vaccine: 60+ Years or (1 - Risk 50-74 years 1-dose series) 2002 [id number] Vaccine ( - 2024- season) 2025 05/06/2024, 06/22/2021, 11/28/2020, Additional history exists [facility]-Influenza Vaccine (#1) 2025 05/06/2024, [facility]-Zoster Vaccines Completed 03/14/2024, [facility]-Pneumococcal Vaccine: 50+ Years Completed 10/18/2024, 12/03/2020, 11/29/2019 [facility]-Obesity Intervention Completed 025, 04/12/2024, 08/17/2023, Additional history exists HPV Vaccines (No Doses Required) Completed [facility]-HIB Vaccines Aged Out No longer e ligible based on patient's age to complete this topic [facility]-Hepatitis A Vaccines Aged Out No longer eligible based on patient's age to complete this topic [facility]-IPV Vaccines Aged Out No longer e ligible based on patient's age to complete this topic [facility]-Rotavirus Vaccines Aged Out No lo nger eligible based on patient's age to complete this topic Insurance [facility] Care Teams Commercial Property Administrator Relationship Specialty Start Date End Date Linda Lamas PA [address] [place] [address] PCP - General 04/24/23
[2025-05-24 10:24] LABS: Microscopic, Urine URINE MICROSCOPIC (MICROSCOPIC)
[2025-05-24 10:41] LABS: Hematocrit 49.4 % (37.0-47.0); Hemoglobin 15.3 g/dL (12.2-16.2); Mean Corpuscular HGB Conc 31.0 g/dL (31.8-35.4); Mean Corpuscular Hemoglobin 27.5 pg (27.0-31.2); Mean Corpuscular Volume 88.8 fl (81-99); Nucleated Red Blood Cells % 0 %; Platelet Count 317 K/mm3 (142-424); Red Blood Count 5.56 M/mm3 (4.20-5.40); Red Cell Distribution Width-SD 42.9 fL; White Blood Count 8.8 K/mm3 (4.8-10.8)
[2025-05-24 12:37] LABS: Color,Urine YELLOW (Yellow); Glucose,Urine (UA) Negative (Negative); Ketones,Urine Negative (Negative); Leukocyte Esterase,Urine Negative (Negative); PH,Urine 5.5 (5.0-8.5); Protein,Urine 1+ (Negative); Specific Gravity, Urine >= 1.030 (1.005-1.030); Urobilinogen,Urine 0.2 EU/dl (0.2)
[2025-05-24 12:41] LABS: Albumin Level 4.8 g/dl (3.5-5.0); Anion Gap 19.9 mEq/L (5-15); Blood Urea Nitrogen 23 mg/dl (7-17); Calcium 9.7 mg/dl (8.4-10.2); Carbon Dioxide 22 mmol/L (22.0-30.0); Chloride 100 mmol/L (98-107); Creatinine,Serum 1.50 mg/dl (0.52-1.04); Estimated Glomerular Filt Rate 34 ml/min (>60); GFR (African American) 41 ML/MIN (>60); Glucose 119 mg/dl (74-100); Phosphorous 3.9 mg/dl (2.5-4.5); Potassium 3.9 mmoL/L (3.5-5.1); Sodium 138 mmol/L (136-145)
[2025-05-24 12:47] LABS: Bilirubin,Urine Negative (Negative)
[2025-05-24 12:48] LABS: Bacteria,Urine Trace /lpf; Squamous Epithelial Cell,Urine Occasional #/hpf (0-5); WBC,Urine Occasional #/hpf (0-3)
== END 2025-05-24 23:59 | disposition home or self-care (01) ==
LOC: LAB 10:16
PROVIDERS: PCP Physician Assistant; Visit Provider Student in an Organized Health Care Education/Training Program
DX: N18.32 Chronic kidney disease, stage 3b (principal)
CPT/HCPCS: 36415; 80069; 81001; 82570; 84156; 85027